=== PATIENT | female | born 1960 | race African-American/Black ===

== ENCOUNTER 2023-03-02 02:57 | Inpatient (IN) | payer MEDICARE, OTHER ==
[~2023-03-02] VITALS: Ht 167.6 cm; Wt 62.8 kg
[~2023-03-02 02:57] MED LIST: ASPI81TA39 PO; GABA-1181 PO; LAMO150T6 PO; NAPR500T6 PO; PRAV40TA3 PO
[2023-03-02 03:13] LABS: BASOPHILS % (AUTO) 1.1 % (0.0-2.0); EOSINOPHILS % (AUTO) 0.2 % (1.0-6.0); HEMOGLOBIN 14.3 g/dL (12.0-16.0); LYMPHOCYTES % (AUTO) 18.1 % (22.0-44.0); MEAN CORPUSCULAR HEMOGLOBIN 31.7 pg (26.0-34.0); MEAN CORPUSCULAR HGB CONC 33.3 G/dL (31.0-37.0); MEAN CORPUSCULAR VOLUME 95 fL (80-100); MONOCYTES # (AUTO) 0.2 K/uL (0.1-1.0); MONOCYTES % (AUTO) 2.1 % (2.0-9.0); NEUTROPHILS # (AUTO) 8.7 K/uL (1.8-7.7); NEUTROPHILS % (AUTO) 78.5 % (40.0-70.0); PLATELET COUNT (AUTO) 435 K/uL (150-450); RED BLOOD CELL COUNT(AUTO) 4.51 MIL/uL (4.00-5.20); RED CELL DISTRIBUTION WIDTH 13.4 % (11.5-14.5)
[2023-03-02] MEDS ORDERED: AZITHROMYCIN 500 MG/NS 250 ML IV ONE (03:15)
[2023-03-02] MEDS ORDERED: ALBUTEROL SULFATE 2.5 MG/0.5 ML NEB SOLUTION NEB ONE (03:15)
[2023-03-02] MEDS ORDERED: IPRATROPIUM BROMIDE 0.5 MG/2.5 ML NEB SOLUTION NEB ONE (03:15)
[2023-03-02] MEDS ORDERED: DEXAMETHASONE SOD PHOS 4 MG/ML 5 ML VIAL IVP ONE (03:15)
[2023-03-02] MEDS ORDERED: SODIUM CHLORIDE 0.9% 1,000 ML IV ONE (03:15)
[2023-03-02] MEDS ORDERED: BACL5TAB PO (03:26)
[2023-03-02] MEDS ORDERED: ESCI5SOL2 PO (03:26)
[2023-03-02] MEDS ORDERED: LAMO200T51 PO (03:26)
[2023-03-02] MEDS ORDERED: ALBU90AE IH (03:26)
[2023-03-02 03:30] LABS: ANION GAP 18 mmol/L (8-16); CALCIUM, TOTAL 9.3 mg/dL (8.8-10.5); CARBON DIOXIDE 18 mmol/L (22-29); CHLORIDE 96 mmol/L (98-107); CREATININE 0.85 mg/dL (0.60-1.30); GLOMERULAR FILTR. RATE CALC > 60 mL/min (>60); GLUCOSE,RANDOM 124 mg/dL (70-110); POTASSIUM 4.1 mmol/L (3.5-5.1); SODIUM SERUM 132 mmol/L (136-145)
[2023-03-02 03:34] LABS: ALANINE AMINOTRANSFERASE 9 U/L (12-78); ALBUMIN 3.1 g/dL (3.4-5.0); ALKALINE PHOSPHATASE 175 U/L (46-116); ASPARTATE AMINOTRANSFERASE 37 U/L (15-37); BILIRUBIN,TOTAL 0.7 mg/dL (0.1-1.0); LIPASE 29 U/L (73-393); TOTAL PROTEIN, SERUM 8.6 g/dL (6.4-8.2)
[2023-03-02 03:49] LABS: B-TYPE NATRIURETIC PEPTIDE 25 pg/mL (0-100)
[2023-03-02] MEDS ORDERED: SODIUM CHLORIDE 0.9% 1,600 ML IV ONE (04:00)
[2023-03-02 04:10] LABS: COVID AG,FIA SOURCE NASOPHARYNGEAL
[2023-03-02 04:14] LABS: INFLUENZA TYPE A NEGATIVE FOR TYPE A (NEGATIVE); INFLUENZA TYPE B NEGATIVE FOR TYPE B (NEGATIVE)
[2023-03-02 04:23] LABS: ABG BASE EXCESS -8.9 mmol/L (-2.0-3.0); ABG CARBOXYHEMOGLOBIN 1.8 % (0.0-1.5); ABG HCO3 18.4 mmol/L (22.0-26.0); ABG METHEMOGLOBIN 0.3 % (0.0-1.5); ABG OXYGEN CONTENT 17.2 mL/dL (15.0-23.0); ABG OXYGEN SATURATION 92.3 % (95.0-98.0); ABG OXYHEMOGLOBIN 90.4 % (94.0-100.0); ABG PCO2 28 mmHg (35-45); ABG PH 7.379 (7.35-7.450); ABG TOTAL HEMOGLOBIN 13.5 G/dL (12.0-18.0); PO2, ARTERIAL BG 70.4 mmHg (79.0-87.0); SOURCE, BLOOD GAS ARTERIAL; TEMPERATURE, FAHRENHEIT, BG 98.7 FAHREN (96.0-98.6)
[2023-03-02 04:24] LABS: ABG A-A DIFF O2 326.3 mmHg (10-20.0); SITE, BLOOD GAS LFT RADIAL
[2023-03-02 04:25] LABS: INSPIRATORY TIME, BG 0.9 SEC; O2 DEVICE,BLOOD GAS BIPAP (ROOM AIR)
[2023-03-02] MEDS ORDERED: ONDANSETRON HCL 4 MG/2 ML VIAL IVP PRN (04:30)
[2023-03-02] MEDS ORDERED: ACETAMINOPHEN 325 MG TABLET PO PRN (04:30)
[2023-03-02] MEDS ORDERED: REMDESIVIR 200 MG in SODIUM CHLORIDE 0.9% 250 ML IV ONE (05:00)
[2023-03-02] MEDS: PIPERACILLIN/TAZO 3.375 GM/D5W 50 ML IV SCH ×2 (05:30→11:43)
[2023-03-02] MEDS ORDERED: RINGERS SOLUTION,LACTATED 1,000 ML IV SCH (07:15)
[2023-03-02] MEDS: HEPARIN SODIUM,PORCINE 5,000 UNITS/ML VIAL SQ SCH ×2 (07:51→15:59)
[2023-03-02] MEDS: DOCUSATE SODIUM 100 MG CAPSULE PO SCH ×2 (08:07→21:00)
[2023-03-02] MEDS: FAMOTIDINE 20 MG/2 ML VIAL IVP SCH ×2 (09:27→22:42)
[2023-03-02 12:00] VITALS: BP 161/80
[2023-03-02] MEDS: SODIUM CHLORIDE 0.9% 1,000 ML IV SCH ×2 (13:02→22:17)
[2023-03-02 13:45] LABS: LACTIC ACID 2.9 mmol/L (0.4-2.0)
[2023-03-02 13:46] LABS: ANION GAP 10 mmol/L (8-16); CALCIUM, TOTAL 8.7 mg/dL (8.8-10.5); CARBON DIOXIDE 25 mmol/L (22-29); CHLORIDE 104 mmol/L (98-107); CREATININE 0.68 mg/dL (0.60-1.30); GLOMERULAR FILTR. RATE CALC > 60 mL/min (>60); GLUCOSE,RANDOM 131 mg/dL (70-110); POTASSIUM 3.4 mmol/L (3.5-5.1); SODIUM SERUM 139 mmol/L (136-145)
[2023-03-02] MEDS: HydrALAZINE HCL 20 MG/ML VIAL IVP PRN (15:59)
[2023-03-02 16:00] VITALS: BP 150/72
[2023-03-02] MEDS ORDERED: TOCILIZUMAB IV ONE (17:00)
[2023-03-02] MEDS: DEXMEDETOMIDINE HCL 400 MCG in SODIUM CHLORIDE 0.9% 96 ML IV PRN (17:00)
[2023-03-02] MEDS ORDERED: SODIUM CHLORIDE 0.9% IV ONE (17:00)
[2023-03-02 20:00] VITALS: BP 112/76
[2023-03-02] MEDS: METOPROLOL TARTRATE 25 MG TABLET PO SCH (22:15)
[2023-03-03] VITALS: BP 98/60
[2023-03-03] MEDS: HEPARIN SODIUM,PORCINE 5,000 UNITS/ML VIAL SQ SCH ×3 (00:46→15:18)
[2023-03-03] MEDS: DEXMEDETOMIDINE HCL 400 MCG in SODIUM CHLORIDE 0.9% 96 ML IV PRN ×2 (03:18→12:10)
[2023-03-03 04:00] VITALS: BP 119/79
[2023-03-03] MEDS: REMDESIVIR 100 MG in SODIUM CHLORIDE 0.9% 250 ML IV SCH (04:52)
[2023-03-03 07:42] LABS: BASOPHILS % (AUTO) 0.4 % (0.0-2.0); EOSINOPHILS % (AUTO) 0.1 % (1.0-6.0); HEMATOCRIT 37.3 % (36-46); HEMOGLOBIN 12.2 g/dL (12.0-16.0); LYMPHOCYTES # (AUTO) 0.9 K/uL (1.0-4.8); LYMPHOCYTES % (AUTO) 11.8 % (22.0-44.0); MEAN CORPUSCULAR HEMOGLOBIN 31.3 pg (26.0-34.0); MEAN CORPUSCULAR HGB CONC 32.7 G/dL (31.0-37.0); MEAN CORPUSCULAR VOLUME 96 fL (80-100); MONOCYTES # (AUTO) 0.4 K/uL (0.1-1.0); MONOCYTES % (AUTO) 4.9 % (2.0-9.0); NEUTROPHILS # (AUTO) 6.6 K/uL (1.8-7.7); NEUTROPHILS % (AUTO) 82.8 % (40.0-70.0); PLATELET COUNT (AUTO) 285 K/uL (150-450); RED CELL DISTRIBUTION WIDTH 13.5 % (11.5-14.5)
[2023-03-03 08:00] VITALS: BP 131/78
[2023-03-03 08:14] LABS: ALANINE AMINOTRANSFERASE 8 U/L (12-78); ALBUMIN 2.1 g/dL (3.4-5.0); ALKALINE PHOSPHATASE 95 U/L (46-116); ANION GAP 14 mmol/L (8-16); ASPARTATE AMINOTRANSFERASE 49 U/L (15-37); BILIRUBIN,TOTAL 0.4 mg/dL (0.1-1.0); CARBON DIOXIDE 18 mmol/L (22-29); CHLORIDE 106 mmol/L (98-107); GLOMERULAR FILTR. RATE CALC > 60 mL/min (>60); GLUCOSE,RANDOM 107 mg/dL (70-110); POTASSIUM 4.4 mmol/L (3.5-5.1); SODIUM SERUM 138 mmol/L (136-145); TOTAL PROTEIN, SERUM 6.8 g/dL (6.4-8.2)
[2023-03-03] MEDS: DEXAMETHASONE SOD PHOS 4 MG/ML VIAL IVP SCH (08:45)
[2023-03-03] MEDS: SODIUM CHLORIDE 0.9% 1,000 ML IV SCH ×2 (08:45→19:01)
[2023-03-03] MEDS: DOCUSATE SODIUM 100 MG CAPSULE PO SCH ×2 (08:46→21:00)
[2023-03-03] MEDS: METOPROLOL TARTRATE 25 MG TABLET PO SCH ×2 (08:46→21:29)
[2023-03-03] MEDS: FAMOTIDINE 20 MG/2 ML VIAL IVP SCH ×2 (08:46→21:29)
[2023-03-03] MEDS ORDERED: LEVE500T20 PO (11:27)
[2023-03-03] MEDS ORDERED: ATOR40TA71 PO (11:27)
[2023-03-03] MEDS ORDERED: FLUT16H NASAL (11:27)
[2023-03-03] MEDS ORDERED: ESCI10 PO (11:27)
[2023-03-03] MEDS ORDERED: LAMO200T10 PO (11:27)
[2023-03-03] MEDS ORDERED: BUDE10.22 IH (11:27)
[2023-03-03] MEDS ORDERED: ASPI-1444 PO (11:27)
[2023-03-03 12:00] VITALS: BP 150/92
[2023-03-03] MEDS ORDERED: LamoTRIgine 100 MG TABLET PO SCH (13:30)
[2023-03-03] MEDS: LevETIRAcetam 500 MG TABLET PO SCH ×2 (15:18→21:28)
[2023-03-03 16:00] VITALS: BP 170/134
[2023-03-03 16:21] LABS: ABG BASE EXCESS -8.2 mmol/L (-2.0-3.0); ABG CARBOXYHEMOGLOBIN 0.5 % (0.0-1.5); ABG METHEMOGLOBIN 0.3 % (0.0-1.5); ABG OXYGEN CONTENT 18.8 mL/dL (15.0-23.0); ABG OXYGEN SATURATION 94.3 % (95.0-98.0); ABG OXYHEMOGLOBIN 93.5 % (94.0-100.0); ABG PCO2 43 mmHg (35-45); ABG PH 7.259 (7.35-7.450); ABG TOTAL HEMOGLOBIN 14.3 G/dL (12.0-18.0); PO2, ARTERIAL BG 78.3 mmHg (79.0-87.0); SITE, BLOOD GAS LFT BRACHIAL; SOURCE, BLOOD GAS ARTERIAL
[2023-03-03 16:22] LABS: ABG A-A DIFF O2 447.5 mmHg (10-20.0); O2 DEVICE,BLOOD GAS BIPAP (ROOM AIR)
[2023-03-03] MEDS ORDERED: ETOMIDATE 2 MG/ML 10 ML VIAL ONE (16:28)
[2023-03-03] MEDS ORDERED: ROCURONIUM BROMIDE 10 MG/ML 5 ML VIAL IVP ONE (17:00)
[2023-03-03] MEDS ORDERED: ETOMIDATE 2 MG/ML 10 ML VIAL IVP ONE (17:00)
[2023-03-03] MEDS ORDERED: SODIUM CHLORIDE 0.9% 500 ML IV ONE (17:16)
[2023-03-03] MEDS: CISATRACURIUM BESYLATE 100 MG in DEXTROSE 5%-WATER 240 ML IV PRN (19:03)
[2023-03-03] MEDS ORDERED: NOREPINEPHRINE 8 MG/D5%-WATER 250 ML IV PRN (19:45)
[2023-03-03] MEDS ORDERED: NOREPINEPHRINE 8 MG/D5%-WATER 250 ML IV ONE (19:46)
[2023-03-03 19:59] LABS: ABG BASE EXCESS -11.6 mmol/L (-2.0-3.0); ABG CARBOXYHEMOGLOBIN 0.2 % (0.0-1.5); ABG METHEMOGLOBIN 0.3 % (0.0-1.5); ABG OXYGEN CONTENT 18.2 mL/dL (15.0-23.0); ABG OXYGEN SATURATION 97.6 % (95.0-98.0); ABG OXYHEMOGLOBIN 97.1 % (94.0-100.0); ABG PCO2 37 mmHg (35-45); ABG PH 7.245 (7.35-7.450); ABG TOTAL HEMOGLOBIN 13.2 G/dL (12.0-18.0); PO2, ARTERIAL BG 110.2 mmHg (79.0-87.0)
[2023-03-03 20:00] VITALS: BP 100/76
[2023-03-03 20:00] LABS: O2 DEVICE,BLOOD GAS VENTILATOR (ROOM AIR); SITE, BLOOD GAS RT RADIAL; SOURCE, BLOOD GAS ART LINE
[2023-03-03 20:01] LABS: PEEP,BG 8 cm H2O; SPONTANEOUS VT, BG 418 ml; VT, ABG 400 ml
[2023-03-03] MEDS ORDERED: VASOPRESSIN 40 UNITS in DEXTROSE 5%-WATER 98 ML IV PRN (20:30)
[2023-03-03] MEDS ORDERED: PHENYLEPHRINE 200 MG/D5%-WATER 250 ML IV PRN (20:30)
[2023-03-03] MEDS: LamoTRIgine 100 MG TABLET PO SCH (21:28)
[2023-03-03] MEDS: PROPOFOL 1000 MG/ISO-OSM 100 ML IV PRN (22:35)
[2023-03-04] VITALS: BP 115/78
[2023-03-04] MEDS: HEPARIN SODIUM,PORCINE 5,000 UNITS/ML VIAL SQ SCH ×4 (01:12→23:55)
[2023-03-04] MEDS: CISATRACURIUM BESYLATE 100 MG in DEXTROSE 5%-WATER 240 ML IV PRN ×2 (03:45→13:32)
[2023-03-04] MEDS: PROPOFOL 1000 MG/ISO-OSM 100 ML IV PRN ×4 (03:46→17:22)
[2023-03-04] MEDS: SODIUM CHLORIDE 0.9% 1,000 ML IV SCH ×3 (03:46→23:56)
[2023-03-04 04:00] VITALS: BP 125/79
[2023-03-04] MEDS: REMDESIVIR 100 MG in SODIUM CHLORIDE 0.9% 250 ML IV SCH (05:23)
[2023-03-04 07:38] LABS: BASOPHILS % (AUTO) 0.2 % (0.0-2.0); EOSINOPHILS % (AUTO) 0 % (1.0-6.0); HEMATOCRIT 38.4 % (36-46); HEMOGLOBIN 12.5 g/dL (12.0-16.0); LYMPHOCYTES # (AUTO) 1.2 K/uL (1.0-4.8); MEAN CORPUSCULAR HEMOGLOBIN 31.3 pg (26.0-34.0); MEAN CORPUSCULAR HGB CONC 32.6 G/dL (31.0-37.0); MEAN CORPUSCULAR VOLUME 96 fL (80-100); MONOCYTES # (AUTO) 0.3 K/uL (0.1-1.0); MONOCYTES % (AUTO) 2.5 % (2.0-9.0); NEUTROPHILS # (AUTO) 9.2 K/uL (1.8-7.7); PLATELET COUNT (AUTO) 378 K/uL (150-450); RED BLOOD CELL COUNT(AUTO) 3.99 MIL/uL (4.00-5.20); RED CELL DISTRIBUTION WIDTH 13.7 % (11.5-14.5)
[2023-03-04 07:41] LABS: NEUTROPHILS % (AUTO) 86.3 % (40.0-70.0)
[2023-03-04 07:57] LABS: ALANINE AMINOTRANSFERASE 8 U/L (12-78); ALBUMIN 1.8 g/dL (3.4-5.0); ALKALINE PHOSPHATASE 85 U/L (46-116); ANION GAP 10 mmol/L (8-16); ASPARTATE AMINOTRANSFERASE 49 U/L (15-37); BILIRUBIN,TOTAL 0.3 mg/dL (0.1-1.0); CALCIUM, TOTAL 8.5 mg/dL (8.8-10.5); CARBON DIOXIDE 20 mmol/L (22-29); CHLORIDE 107 mmol/L (98-107); CREATININE 0.61 mg/dL (0.60-1.30); GLOMERULAR FILTR. RATE CALC > 60 mL/min (>60); GLUCOSE,RANDOM 126 mg/dL (70-110); POTASSIUM 4.5 mmol/L (3.5-5.1); SODIUM SERUM 137 mmol/L (136-145); TOTAL PROTEIN, SERUM 5.9 g/dL (6.4-8.2)
[2023-03-04 08:00] VITALS: BP 101/72
[2023-03-04 09:07] LABS: APPEARANCE,URINE HAZY (CLEAR); BILIRUBIN,URINE NEGATIVE (NEGATIVE); GLUCOSE, URINE (UA) NEGATIVE (NEGATIVE); KETONES,URINE TRACE mg/dL (NEGATIVE); LEUKOCYTE ESTERASE ,URINE TRACE (NEGATIVE); NITRATE,URINE NEGATIVE (NEGATIVE); OCCULT BLOOD,URINE LARGE (NEGATIVE); PROTEIN,URINE 30-70 mg/dL (NEGATIVE); SPECIFIC GRAVITIY, URINE 1.024 (1.003-1.030); UROBILINOGEN,URINE <=1.0 mg/dL (<=1.0)
[2023-03-04] MEDS: LamoTRIgine 100 MG TABLET PO SCH ×2 (09:11→20:37)
[2023-03-04] MEDS: METOPROLOL TARTRATE 25 MG TABLET PO SCH ×2 (09:11→20:38)
[2023-03-04] MEDS: FAMOTIDINE 20 MG/2 ML VIAL IVP SCH ×2 (09:12→20:36)
[2023-03-04] MEDS: DEXAMETHASONE SOD PHOS 4 MG/ML VIAL IVP SCH (09:12)
[2023-03-04] MEDS: LevETIRAcetam 500 MG TABLET PO SCH ×2 (09:12→20:36)
[2023-03-04 09:29] LABS: AMPHET/METH SCREEN,URINE NEGATIVE (NEGATIVE); BARBITURATE SCREEN, URINE NEGATIVE (NEGATIVE); BENZODIAZEPINES SCREEN,URINE NEGATIVE (NEGATIVE); CANNABINOID SCREEN,URINE NEGATIVE (NEGATIVE); COCAINE SCREEN,URINE NEGATIVE (NEGATIVE); METHADONE SCREEN, URINE NEGATIVE (NEGATIVE); OPIATE SCREEN,URINE NEGATIVE (NEGATIVE); PHENCYCLIDINE SCREEN,URINE NEGATIVE (NEGATIVE)
[2023-03-04 09:43] LABS: RBC,URINE 26-50 /HPF (0-2)
[2023-03-04 09:44] LABS: BACTERIA,URINE Moderate /HPF (None Seen); FINE GRANULAR CASTS,URINE 0-2 /LPF (None Seen); HYALINE CASTS, URINE 0-2 /LPF (None Seen); SQUAMOUS EPITHELIAL CELL,UR Moderate /LPF (None Seen)
[2023-03-04] MEDS: DOCUSATE SODIUM 100 MG CAPSULE PO SCH ×2 (09:54→20:38)
[2023-03-04 12:00] VITALS: BP 123/85
[2023-03-04 15:45] LABS: ABG BASE EXCESS -10.6 mmol/L (-2.0-3.0); ABG HCO3 16.5 mmol/L (22.0-26.0); ABG METHEMOGLOBIN 0.3 % (0.0-1.5); ABG OXYGEN CONTENT 18.5 mL/dL (15.0-23.0); ABG OXYGEN SATURATION 95.4 % (95.0-98.0); ABG OXYHEMOGLOBIN 95.1 % (94.0-100.0); ABG PCO2 40 mmHg (35-45); ABG PH 7.242 (7.35-7.450); ABG TOTAL HEMOGLOBIN 13.8 G/dL (12.0-18.0); PO2, ARTERIAL BG 85.9 mmHg (79.0-87.0); SOURCE, BLOOD GAS ARTERIAL; TEMPERATURE, FAHRENHEIT, BG 98.2 FAHREN (96.0-98.6)
[2023-03-04 15:48] LABS: ABG A-A DIFF O2 153.7 mmHg (10-20.0); O2 DEVICE,BLOOD GAS VENTILATOR (ROOM AIR); PEEP,BG 8 cm H2O; SITE, BLOOD GAS ARTERIAL LINE; VT, ABG 400 ml
[2023-03-04 16:00] VITALS: BP 100/72
[2023-03-04] MEDS ORDERED: SODIUM BICARBONATE [ADULT] 8.4% 50 MEQ/50 ML SYRINGE IVP ONE (16:00)
[2023-03-04] MEDS: FentaNYL CIT 1000MCG/0.9% NACL 100 ML IV PRN (17:21)
[2023-03-04 17:26] LABS: ABG BASE EXCESS -4.3 mmol/L (-2.0-3.0); ABG CARBOXYHEMOGLOBIN 0.2 % (0.0-1.5); ABG HCO3 21.5 mmol/L (22.0-26.0); ABG METHEMOGLOBIN 0.3 % (0.0-1.5); ABG OXYGEN SATURATION 97.3 % (95.0-98.0); ABG OXYHEMOGLOBIN 96.8 % (94.0-100.0); ABG PCO2 34 mmHg (35-45); ABG PH 7.399 (7.35-7.450); ABG TOTAL HEMOGLOBIN 13.2 G/dL (12.0-18.0); PO2, ARTERIAL BG 90.7 mmHg (79.0-87.0); SITE, BLOOD GAS ARTERIAL LINE; SOURCE, BLOOD GAS ARTERIAL; TEMPERATURE, FAHRENHEIT, BG 98.6 FAHREN (96.0-98.6)
[2023-03-04 17:27] LABS: ABG A-A DIFF O2 155.5 mmHg (10-20.0); O2 DEVICE,BLOOD GAS VENTILATOR (ROOM AIR); PEEP,BG 8 cm H2O; VT, ABG 400 ml
[2023-03-04 20:00] VITALS: BP 103/67
[2023-03-05] VITALS: BP 99/62
[2023-03-05] MEDS: PROPOFOL 1000 MG/ISO-OSM 100 ML IV PRN ×2 (02:41→15:19)
[2023-03-05 04:00] VITALS: BP 113/65
[2023-03-05] MEDS: REMDESIVIR 100 MG in SODIUM CHLORIDE 0.9% 250 ML IV SCH (05:09)
[2023-03-05 05:31] LABS: BASOPHILS % (AUTO) 0.4 % (0.0-2.0); EOSINOPHILS % (AUTO) 0 % (1.0-6.0); HEMATOCRIT 36.9 % (36-46); LYMPHOCYTES # (AUTO) 1.4 K/uL (1.0-4.8); LYMPHOCYTES % (AUTO) 12.3 % (22.0-44.0); MEAN CORPUSCULAR HEMOGLOBIN 30.9 pg (26.0-34.0); MEAN CORPUSCULAR HGB CONC 32.5 G/dL (31.0-37.0); MEAN CORPUSCULAR VOLUME 95 fL (80-100); MONOCYTES # (AUTO) 0.4 K/uL (0.1-1.0); MONOCYTES % (AUTO) 3.8 % (2.0-9.0); NEUTROPHILS # (AUTO) 9.2 K/uL (1.8-7.7); NEUTROPHILS % (AUTO) 83.5 % (40.0-70.0); PLATELET COUNT (AUTO) 372 K/uL (150-450); RED BLOOD CELL COUNT(AUTO) 3.88 MIL/uL (4.00-5.20); RED CELL DISTRIBUTION WIDTH 13.8 % (11.5-14.5)
[2023-03-05 05:49] LABS: ALANINE AMINOTRANSFERASE 12 U/L (12-78); ALBUMIN 1.8 g/dL (3.4-5.0); ALKALINE PHOSPHATASE 72 U/L (46-116); ANION GAP 11 mmol/L (8-16); ASPARTATE AMINOTRANSFERASE 43 U/L (15-37); BILIRUBIN,TOTAL 0.3 mg/dL (0.1-1.0); CALCIUM, TOTAL 8.2 mg/dL (8.8-10.5); CARBON DIOXIDE 21 mmol/L (22-29); CHLORIDE 108 mmol/L (98-107); CREATININE 0.52 mg/dL (0.60-1.30); GLOMERULAR FILTR. RATE CALC > 60 mL/min (>60); GLUCOSE,RANDOM 124 mg/dL (70-110); POTASSIUM 3.6 mmol/L (3.5-5.1); SODIUM SERUM 140 mmol/L (136-145); TOTAL PROTEIN, SERUM 5.5 g/dL (6.4-8.2)
[2023-03-05] MEDS: FentaNYL CIT 1000MCG/0.9% NACL 100 ML IV PRN ×2 (06:42→22:42)
[2023-03-05 08:00] VITALS: BP 103/57
[2023-03-05] MEDS: DEXAMETHASONE SOD PHOS 4 MG/ML VIAL IVP SCH (08:46)
[2023-03-05] MEDS: FAMOTIDINE 20 MG/2 ML VIAL IVP SCH ×2 (08:46→20:30)
[2023-03-05] MEDS: HEPARIN SODIUM,PORCINE 5,000 UNITS/ML VIAL SQ SCH ×3 (08:47→23:20)
[2023-03-05] MEDS: DOCUSATE SODIUM 100 MG CAPSULE PO SCH ×2 (08:47→20:30)
[2023-03-05] MEDS: METOPROLOL TARTRATE 25 MG TABLET PO SCH ×2 (08:47→20:32)
[2023-03-05] MEDS: LevETIRAcetam 500 MG TABLET PO SCH ×2 (08:47→20:30)
[2023-03-05] MEDS: LamoTRIgine 100 MG TABLET PO SCH ×2 (08:48→20:31)
[2023-03-05] MEDS: SODIUM CHLORIDE 0.9% 1,000 ML IV SCH ×2 (08:48→20:30)
[2023-03-05 12:00] VITALS: BP 122/59
[2023-03-05 16:00] VITALS: BP 111/66
[2023-03-05 20:00] VITALS: BP 117/70
[2023-03-06] VITALS: BP 110/73
[2023-03-06] MEDS: PROPOFOL 1000 MG/ISO-OSM 100 ML IV PRN ×3 (00:09→20:22)
[2023-03-06 04:00] VITALS: BP 106/74
[2023-03-06] MEDS: REMDESIVIR 100 MG in SODIUM CHLORIDE 0.9% 250 ML IV SCH (05:41)
[2023-03-06] MEDS: SODIUM CHLORIDE 0.9% 1,000 ML IV SCH ×2 (05:42→16:20)
[2023-03-06 05:52] LABS: BASOPHILS % (AUTO) 0.3 % (0.0-2.0); EOSINOPHILS % (AUTO) 0.1 % (1.0-6.0); HEMATOCRIT 35.2 % (36-46); HEMOGLOBIN 11.6 g/dL (12.0-16.0); LYMPHOCYTES % (AUTO) 12.9 % (22.0-44.0); MEAN CORPUSCULAR HEMOGLOBIN 31.3 pg (26.0-34.0); MEAN CORPUSCULAR VOLUME 95 fL (80-100); MONOCYTES # (AUTO) 0.3 K/uL (0.1-1.0); MONOCYTES % (AUTO) 4.1 % (2.0-9.0); NEUTROPHILS # (AUTO) 6.1 K/uL (1.8-7.7); NEUTROPHILS % (AUTO) 82.6 % (40.0-70.0); PLATELET COUNT (AUTO) 277 K/uL (150-450); RED BLOOD CELL COUNT(AUTO) 3.72 MIL/uL (4.00-5.20); RED CELL DISTRIBUTION WIDTH 13.6 % (11.5-14.5)
[2023-03-06 06:06] LABS: ALANINE AMINOTRANSFERASE 8 U/L (12-78); ALBUMIN 1.8 g/dL (3.4-5.0); ALKALINE PHOSPHATASE 64 U/L (46-116); ANION GAP 8 mmol/L (8-16); ASPARTATE AMINOTRANSFERASE 29 U/L (15-37); BILIRUBIN,TOTAL 0.2 mg/dL (0.1-1.0); CARBON DIOXIDE 23 mmol/L (22-29); CHLORIDE 109 mmol/L (98-107); CREATININE 0.42 mg/dL (0.60-1.30); GLOMERULAR FILTR. RATE CALC > 60 mL/min (>60); GLUCOSE,RANDOM 121 mg/dL (70-110); POTASSIUM 3.3 mmol/L (3.5-5.1); SODIUM SERUM 140 mmol/L (136-145)
[2023-03-06 08:00] VITALS: BP 111/65
[2023-03-06] MEDS ORDERED: 0.9% SODIUM CHLORIDE 5 ML NEB SOLUTION NEB ONE (08:31)
[2023-03-06] MEDS: ALBUTEROL SULFATE 2.5 MG/0.5 ML NEB SOLUTION NEB PRN ×2 (08:33→16:08)
[2023-03-06] MEDS: METOPROLOL TARTRATE 25 MG TABLET PO SCH ×2 (09:00→21:00)
[2023-03-06] MEDS: HEPARIN SODIUM,PORCINE 5,000 UNITS/ML VIAL SQ SCH ×2 (09:12→16:19)
[2023-03-06] MEDS: DOCUSATE SODIUM 100 MG CAPSULE PO SCH ×2 (09:13→20:21)
[2023-03-06] MEDS: LamoTRIgine 100 MG TABLET PO SCH ×2 (09:13→20:20)
[2023-03-06] MEDS: LevETIRAcetam 500 MG TABLET PO SCH ×2 (09:13→20:20)
[2023-03-06] MEDS: FAMOTIDINE 20 MG/2 ML VIAL IVP SCH ×2 (09:13→20:20)
[2023-03-06] MEDS: DEXAMETHASONE SOD PHOS 4 MG/ML VIAL IVP SCH (09:14)
[2023-03-06] MEDS: FentaNYL CIT 1000MCG/0.9% NACL 100 ML IV PRN ×2 (09:15→20:15)
[2023-03-06 12:00] VITALS: BP 109/63
[2023-03-06 16:00] VITALS: BP 135/81
[2023-03-06] MEDS: IPRATROPIUM BROMIDE 0.5 MG/2.5 ML NEB SOLUTION NEB PRN (16:08)
[2023-03-06 20:00] VITALS: BP 91/45
[2023-03-06] MEDS ORDERED: MIDAZOLAM HCL 5 MG/ML VIAL IVP PRN (22:30)
[2023-03-07] VITALS: BP 91/45
[2023-03-07] MEDS: HEPARIN SODIUM,PORCINE 5,000 UNITS/ML VIAL SQ SCH ×4 (00:09→23:19)
[2023-03-07] MEDS: PROPOFOL 1000 MG/ISO-OSM 100 ML IV PRN ×4 (02:27→18:31)
[2023-03-07] MEDS: SODIUM CHLORIDE 0.9% 1,000 ML IV SCH ×3 (02:28→21:34)
[2023-03-07] MEDS ORDERED: SODIUM CHLORIDE 0.9% 500 ML IV ONE (03:36)
[2023-03-07 04:00] VITALS: BP 111/72
[2023-03-07] MEDS: FentaNYL CIT 1000MCG/0.9% NACL 100 ML IV PRN ×2 (05:33→12:33)
[2023-03-07 05:44] LABS: BASOPHILS % (AUTO) 0.2 % (0.0-2.0); EOSINOPHILS % (AUTO) 0.2 % (1.0-6.0); HEMATOCRIT 34.2 % (36-46); HEMOGLOBIN 11.2 g/dL (12.0-16.0); LYMPHOCYTES # (AUTO) 1.6 K/uL (1.0-4.8); LYMPHOCYTES % (AUTO) 18.9 % (22.0-44.0); MEAN CORPUSCULAR HEMOGLOBIN 31.2 pg (26.0-34.0); MEAN CORPUSCULAR HGB CONC 32.7 G/dL (31.0-37.0); MEAN CORPUSCULAR VOLUME 95 fL (80-100); MONOCYTES # (AUTO) 0.5 K/uL (0.1-1.0); MONOCYTES % (AUTO) 6.1 % (2.0-9.0); NEUTROPHILS # (AUTO) 6.2 K/uL (1.8-7.7); NEUTROPHILS % (AUTO) 74.6 % (40.0-70.0); PLATELET COUNT (AUTO) 230 K/uL (150-450); RED BLOOD CELL COUNT(AUTO) 3.58 MIL/uL (4.00-5.20); RED CELL DISTRIBUTION WIDTH 13.7 % (11.5-14.5)
[2023-03-07 05:55] LABS: ANION GAP 9 mmol/L (8-16); CALCIUM, TOTAL 8.1 mg/dL (8.8-10.5); CARBON DIOXIDE 23 mmol/L (22-29); CHLORIDE 109 mmol/L (98-107); CREATININE 0.43 mg/dL (0.60-1.30); GLOMERULAR FILTR. RATE CALC > 60 mL/min (>60); GLUCOSE,RANDOM 108 mg/dL (70-110); PHOSPHORUS 2.7 mg/dL (2.5-4.9); POTASSIUM 3.2 mmol/L (3.5-5.1); SODIUM SERUM 141 mmol/L (136-145)
[2023-03-07 08:00] VITALS: BP 110/64
[2023-03-07] MEDS: LamoTRIgine 100 MG TABLET PO SCH ×2 (08:56→21:06)
[2023-03-07] MEDS: FAMOTIDINE 20 MG/2 ML VIAL IVP SCH ×2 (08:56→21:06)
[2023-03-07] MEDS: DEXAMETHASONE SOD PHOS 4 MG/ML VIAL IVP SCH (08:56)
[2023-03-07] MEDS: METOPROLOL TARTRATE 25 MG TABLET PO SCH ×2 (08:57→21:00)
[2023-03-07] MEDS: DOCUSATE SODIUM 100 MG CAPSULE PO SCH ×2 (08:58→21:05)
[2023-03-07] MEDS: LevETIRAcetam 100 MG/ML 5 ML SOLUTION UDCUP PO SCH ×2 (09:41→21:05)
[2023-03-07 12:00] VITALS: BP 101/61
[2023-03-07] MEDS ORDERED: POTASSIUM CHLORIDE 20 MEQ ER TABLET PO PRN (14:30)
[2023-03-07] MEDS: POTASSIUM CHL 10 MEQ/WATER 50 ML IV PRN ×4 (14:42→17:15)
[2023-03-07 16:00] VITALS: BP 95/63
[2023-03-07 20:00] VITALS: BP 102/68
[2023-03-08] VITALS: BP 104/69
[2023-03-08] MEDS: PROPOFOL 1000 MG/ISO-OSM 100 ML IV PRN ×3 (01:10→17:14)
[2023-03-08] MEDS: FentaNYL CIT 1000MCG/0.9% NACL 100 ML IV PRN ×3 (01:11→17:16)
[2023-03-08 04:00] VITALS: BP 110/56
[2023-03-08 05:30] LABS: BASOPHILS % (AUTO) 0.3 % (0.0-2.0); EOSINOPHILS % (AUTO) 0.3 % (1.0-6.0); HEMOGLOBIN 11.6 g/dL (12.0-16.0); LYMPHOCYTES % (AUTO) 16.2 % (22.0-44.0); MEAN CORPUSCULAR HEMOGLOBIN 31.3 pg (26.0-34.0); MEAN CORPUSCULAR HGB CONC 33.1 G/dL (31.0-37.0); MEAN CORPUSCULAR VOLUME 95 fL (80-100); MONOCYTES # (AUTO) 0.3 K/uL (0.1-1.0); MONOCYTES % (AUTO) 5.4 % (2.0-9.0); NEUTROPHILS # (AUTO) 4.8 K/uL (1.8-7.7); NEUTROPHILS % (AUTO) 77.8 % (40.0-70.0); PLATELET COUNT (AUTO) 213 K/uL (150-450); RED CELL DISTRIBUTION WIDTH 13.3 % (11.5-14.5)
[2023-03-08 05:39] LABS: ANION GAP 8 mmol/L (8-16); CALCIUM, TOTAL 7.9 mg/dL (8.8-10.5); CARBON DIOXIDE 22 mmol/L (22-29); CHLORIDE 113 mmol/L (98-107); CREATININE 0.28 mg/dL (0.60-1.30); GLOMERULAR FILTR. RATE CALC > 60 mL/min (>60); GLUCOSE,RANDOM 110 mg/dL (70-110); POTASSIUM 3.6 mmol/L (3.5-5.1); SODIUM SERUM 143 mmol/L (136-145)
[2023-03-08 08:00] VITALS: BP 97/61
[2023-03-08] MEDS: LamoTRIgine 100 MG TABLET PO SCH ×2 (08:15→22:03)
[2023-03-08] MEDS: HEPARIN SODIUM,PORCINE 5,000 UNITS/ML VIAL SQ SCH ×2 (08:16→15:12)
[2023-03-08] MEDS: LevETIRAcetam 100 MG/ML 5 ML SOLUTION UDCUP PO SCH ×2 (08:16→22:03)
[2023-03-08] MEDS: FAMOTIDINE 20 MG/2 ML VIAL IVP SCH ×2 (08:16→22:05)
[2023-03-08] MEDS: DEXAMETHASONE SOD PHOS 4 MG/ML VIAL IVP SCH (08:16)
[2023-03-08] MEDS: METOPROLOL TARTRATE 25 MG TABLET PO SCH ×2 (08:17→21:00)
[2023-03-08] MEDS: DOCUSATE SODIUM 100 MG CAPSULE PO SCH ×2 (08:17→22:03)
[2023-03-08 12:00] VITALS: BP 102/66
[2023-03-08] MEDS: SODIUM CHLORIDE 0.9% 1,000 ML IV SCH (15:10)
[2023-03-08 16:00] VITALS: BP 92/57
[2023-03-08 20:00] VITALS: BP 94/55
[2023-03-09] VITALS: BP 83/51
[2023-03-09] MEDS: FentaNYL CIT 1000MCG/0.9% NACL 100 ML IV PRN ×4 (00:22→23:56)
[2023-03-09] MEDS: PROPOFOL 1000 MG/ISO-OSM 100 ML IV PRN ×5 (00:23→23:57)
[2023-03-09] MEDS: SODIUM CHLORIDE 0.9% 1,000 ML IV SCH ×3 (00:24→14:40)
[2023-03-09] MEDS: HEPARIN SODIUM,PORCINE 5,000 UNITS/ML VIAL SQ SCH ×3 (00:24→16:09)
[2023-03-09 04:00] VITALS: BP 111/66
[2023-03-09 05:33] LABS: BASOPHILS % (AUTO) 0.7 % (0.0-2.0); EOSINOPHILS % (AUTO) 0.6 % (1.0-6.0); HEMATOCRIT 29.3 % (36-46); HEMOGLOBIN 9.7 g/dL (12.0-16.0); LYMPHOCYTES # (AUTO) 1.5 K/uL (1.0-4.8); LYMPHOCYTES % (AUTO) 12.4 % (22.0-44.0); MEAN CORPUSCULAR HEMOGLOBIN 31.6 pg (26.0-34.0); MEAN CORPUSCULAR HGB CONC 33.1 G/dL (31.0-37.0); MEAN CORPUSCULAR VOLUME 95 fL (80-100); MONOCYTES # (AUTO) 0.8 K/uL (0.1-1.0); MONOCYTES % (AUTO) 6.6 % (2.0-9.0); NEUTROPHILS # (AUTO) 9.4 K/uL (1.8-7.7); NEUTROPHILS % (AUTO) 79.7 % (40.0-70.0); PLATELET COUNT (AUTO) 217 K/uL (150-450); RED BLOOD CELL COUNT(AUTO) 3.07 MIL/uL (4.00-5.20); RED CELL DISTRIBUTION WIDTH 13.7 % (11.5-14.5)
[2023-03-09 08:00] VITALS: BP 110/65
[2023-03-09 08:04] LABS: ANION GAP 9 mmol/L (8-16); CALCIUM, TOTAL 7.8 mg/dL (8.8-10.5); CARBON DIOXIDE 23 mmol/L (22-29); CHLORIDE 112 mmol/L (98-107); GLOMERULAR FILTR. RATE CALC > 60 mL/min (>60); GLUCOSE,RANDOM 93 mg/dL (70-110); SODIUM SERUM 144 mmol/L (136-145)
[2023-03-09] MEDS: DEXAMETHASONE SOD PHOS 4 MG/ML VIAL IVP SCH (08:21)
[2023-03-09] MEDS: FAMOTIDINE 20 MG/2 ML VIAL IVP SCH ×2 (08:21→22:03)
[2023-03-09] MEDS: LevETIRAcetam 100 MG/ML 5 ML SOLUTION UDCUP PO SCH ×2 (08:21→22:02)
[2023-03-09] MEDS: LamoTRIgine 100 MG TABLET PO SCH ×2 (08:22→22:03)
[2023-03-09] MEDS: METOPROLOL TARTRATE 25 MG TABLET PO SCH ×2 (08:22→21:00)
[2023-03-09] MEDS: DOCUSATE SODIUM 100 MG CAPSULE PO SCH ×2 (08:23→22:03)
[2023-03-09 12:00] VITALS: BP 140/77
[2023-03-09 16:00] VITALS: BP 94/59
[2023-03-09] MEDS: FUROSEMIDE 40 MG/4 ML VIAL IVP SCH (18:06)
[2023-03-09 20:00] VITALS: BP 92/57
[2023-03-10] VITALS: BP 112/64
[2023-03-10] MEDS: HEPARIN SODIUM,PORCINE 5,000 UNITS/ML VIAL SQ SCH ×3 (00:34→16:09)
[2023-03-10] MEDS: SODIUM CHLORIDE 0.9% 1,000 ML IV SCH ×3 (00:34→21:52)
[2023-03-10 04:00] VITALS: BP 120/66
[2023-03-10] MEDS: PROPOFOL 1000 MG/ISO-OSM 100 ML IV PRN ×4 (05:33→22:41)
[2023-03-10] MEDS: FentaNYL CIT 1000MCG/0.9% NACL 100 ML IV PRN ×3 (05:34→21:54)
[2023-03-10 06:05] LABS: BASOPHILS % (AUTO) 1.2 % (0.0-2.0); EOSINOPHILS % (AUTO) 1.1 % (1.0-6.0); HEMATOCRIT 28.9 % (36-46); HEMOGLOBIN 9.7 g/dL (12.0-16.0); LYMPHOCYTES # (AUTO) 1.3 K/uL (1.0-4.8); LYMPHOCYTES % (AUTO) 15.6 % (22.0-44.0); MEAN CORPUSCULAR HEMOGLOBIN 31.9 pg (26.0-34.0); MEAN CORPUSCULAR HGB CONC 33.5 G/dL (31.0-37.0); MEAN CORPUSCULAR VOLUME 95 fL (80-100); MONOCYTES # (AUTO) 0.3 K/uL (0.1-1.0); MONOCYTES % (AUTO) 3.9 % (2.0-9.0); NEUTROPHILS # (AUTO) 6.3 K/uL (1.8-7.7); NEUTROPHILS % (AUTO) 78.2 % (40.0-70.0); PLATELET COUNT (AUTO) 183 K/uL (150-450); RED BLOOD CELL COUNT(AUTO) 3.04 MIL/uL (4.00-5.20); RED CELL DISTRIBUTION WIDTH 13.8 % (11.5-14.5)
[2023-03-10 08:00] VITALS: BP 91/53
[2023-03-10 08:18] LABS: ANION GAP 11 mmol/L (8-16); CALCIUM, TOTAL 7.6 mg/dL (8.8-10.5); CARBON DIOXIDE 23 mmol/L (22-29); CHLORIDE 111 mmol/L (98-107); CREATININE 0.32 mg/dL (0.60-1.30); GLOMERULAR FILTR. RATE CALC > 60 mL/min (>60); GLUCOSE,RANDOM 106 mg/dL (70-110); SODIUM SERUM 145 mmol/L (136-145)
[2023-03-10] MEDS: LevETIRAcetam 100 MG/ML 5 ML SOLUTION UDCUP PO SCH ×2 (08:19→21:52)
[2023-03-10 08:20] LABS: POTASSIUM 2.9 mmol/L (3.5-5.1)
[2023-03-10] MEDS: LamoTRIgine 100 MG TABLET PO SCH ×2 (08:20→21:53)
[2023-03-10] MEDS: FAMOTIDINE 20 MG/2 ML VIAL IVP SCH ×2 (08:20→21:53)
[2023-03-10] MEDS: DEXAMETHASONE SOD PHOS 4 MG/ML VIAL IVP SCH (08:21)
[2023-03-10] MEDS: DOCUSATE SODIUM 100 MG CAPSULE PO SCH ×2 (08:21→21:53)
[2023-03-10] MEDS: FUROSEMIDE 40 MG/4 ML VIAL IVP SCH (08:21)
[2023-03-10] MEDS: METOPROLOL TARTRATE 25 MG TABLET PO SCH ×2 (08:22→21:00)
[2023-03-10] MEDS: POTASSIUM CHL 10 MEQ/WATER 50 ML IV PRN ×4 (08:48→10:53)
[2023-03-10 12:00] VITALS: BP 107/64
[2023-03-10 16:00] VITALS: BP 92/55
[2023-03-10] MEDS: DEXMEDETOMIDINE HCL 400 MCG in SODIUM CHLORIDE 0.9% 96 ML IV PRN (17:18)
[2023-03-10 20:00] VITALS: BP 132/75
[2023-03-11] VITALS: BP 112/62
[2023-03-11] MEDS: HEPARIN SODIUM,PORCINE 5,000 UNITS/ML VIAL SQ SCH ×3 (01:32→15:41)
[2023-03-11 04:00] VITALS: BP 156/92
[2023-03-11] MEDS: PROPOFOL 1000 MG/ISO-OSM 100 ML IV PRN ×2 (04:39→14:34)
[2023-03-11] MEDS: FentaNYL CIT 1000MCG/0.9% NACL 100 ML IV PRN (04:40)
[2023-03-11] MEDS: DEXMEDETOMIDINE HCL 400 MCG in SODIUM CHLORIDE 0.9% 96 ML IV PRN ×3 (04:41→16:24)
[2023-03-11 05:51] LABS: BASOPHILS % (AUTO) 0.2 % (0.0-2.0); EOSINOPHILS % (AUTO) 0.5 % (1.0-6.0); HEMATOCRIT 36.2 % (36-46); HEMOGLOBIN 11.6 g/dL (12.0-16.0); LYMPHOCYTES % (AUTO) 11.7 % (22.0-44.0); MEAN CORPUSCULAR HEMOGLOBIN 30.9 pg (26.0-34.0); MEAN CORPUSCULAR HGB CONC 32.2 G/dL (31.0-37.0); MEAN CORPUSCULAR VOLUME 96 fL (80-100); MONOCYTES # (AUTO) 0.3 K/uL (0.1-1.0); MONOCYTES % (AUTO) 2.9 % (2.0-9.0); NEUTROPHILS # (AUTO) 7.6 K/uL (1.8-7.7); NEUTROPHILS % (AUTO) 84.7 % (40.0-70.0); PLATELET COUNT (AUTO) 185 K/uL (150-450); RED BLOOD CELL COUNT(AUTO) 3.76 MIL/uL (4.00-5.20); RED CELL DISTRIBUTION WIDTH 13.7 % (11.5-14.5)
[2023-03-11 06:02] LABS: ANION GAP 9 mmol/L (8-16); CALCIUM, TOTAL 7.7 mg/dL (8.8-10.5); CARBON DIOXIDE 24 mmol/L (22-29); CHLORIDE 112 mmol/L (98-107); CREATININE 0.38 mg/dL (0.60-1.30); GLOMERULAR FILTR. RATE CALC > 60 mL/min (>60); GLUCOSE,RANDOM 99 mg/dL (70-110); POTASSIUM 3.4 mmol/L (3.5-5.1); SODIUM SERUM 145 mmol/L (136-145)
[2023-03-11] MEDS: SODIUM CHLORIDE 0.9% 1,000 ML IV SCH ×2 (06:34→20:32)
[2023-03-11] MEDS: POTASSIUM CHL 10 MEQ/WATER 50 ML IV PRN ×2 (06:34→09:11)
[2023-03-11 08:00] VITALS: BP 112/69
[2023-03-11] MEDS: LevETIRAcetam 100 MG/ML 5 ML SOLUTION UDCUP PO SCH ×2 (08:55→20:32)
[2023-03-11] MEDS: LamoTRIgine 100 MG TABLET PO SCH ×2 (08:55→20:33)
[2023-03-11] MEDS: FUROSEMIDE 40 MG/4 ML VIAL IVP SCH (08:55)
[2023-03-11] MEDS: DOCUSATE SODIUM 100 MG CAPSULE PO SCH ×2 (08:56→20:32)
[2023-03-11] MEDS: FAMOTIDINE 20 MG/2 ML VIAL IVP SCH ×2 (08:56→20:32)
[2023-03-11] MEDS: METOPROLOL TARTRATE 25 MG TABLET PO SCH ×2 (08:56→20:34)
[2023-03-11] MEDS: DEXAMETHASONE SOD PHOS 4 MG/ML VIAL IVP SCH (09:07)
[2023-03-11 12:00] VITALS: BP 86/49
[2023-03-11 16:00] VITALS: BP 124/74
[2023-03-11 19:43] LABS: ABG BASE EXCESS -0.8 mmol/L (-2.0-3.0); ABG CARBOXYHEMOGLOBIN 0.2 % (0.0-1.5); ABG HCO3 24.6 mmol/L (22.0-26.0); ABG METHEMOGLOBIN 0.2 % (0.0-1.5); ABG OXYGEN CONTENT 19.8 mL/dL (15.0-23.0); ABG OXYGEN SATURATION 97.1 % (95.0-98.0); ABG OXYHEMOGLOBIN 96.7 % (94.0-100.0); ABG PCO2 32 mmHg (35-45); ABG PH 7.472 (7.35-7.450); ABG TOTAL HEMOGLOBIN 14.5 G/dL (12.0-18.0); PO2, ARTERIAL BG 93.2 mmHg (79.0-87.0); SOURCE, BLOOD GAS ARTERIAL; TEMPERATURE, FAHRENHEIT, BG 98.6 FAHREN (96.0-98.6)
[2023-03-11 19:46] LABS: O2 DEVICE,BLOOD GAS VENTILATOR (ROOM AIR); PEEP,BG 5 cm H2O; SITE, BLOOD GAS ARTERIAL LINE; VT, ABG 400 ml
[2023-03-11 20:00] VITALS: BP 140/84
[2023-03-12] VITALS: BP 137/91
[2023-03-12] MEDS: DEXMEDETOMIDINE HCL 400 MCG in SODIUM CHLORIDE 0.9% 96 ML IV PRN ×3 (00:05→18:24)
[2023-03-12] MEDS: HEPARIN SODIUM,PORCINE 5,000 UNITS/ML VIAL SQ SCH ×3 (00:06→16:17)
[2023-03-12] MEDS: PROPOFOL 1000 MG/ISO-OSM 100 ML IV PRN ×3 (01:36→21:24)
[2023-03-12 04:00] VITALS: BP 149/76
[2023-03-12] MEDS ORDERED: SODIUM CHLORIDE 0.9% 500 ML IV ONE (04:43)
[2023-03-12] MEDS ORDERED: SODIUM CHLORIDE 0.9% 250 ML IV ONE (04:43)
[2023-03-12 05:52] LABS: BASOPHILS % (AUTO) 0.4 % (0.0-2.0); EOSINOPHILS % (AUTO) 0.7 % (1.0-6.0); HEMATOCRIT 37.3 % (36-46); HEMOGLOBIN 12.2 g/dL (12.0-16.0); LYMPHOCYTES # (AUTO) 1.3 K/uL (1.0-4.8); LYMPHOCYTES % (AUTO) 16.1 % (22.0-44.0); MEAN CORPUSCULAR HGB CONC 32.7 G/dL (31.0-37.0); MEAN CORPUSCULAR VOLUME 95 fL (80-100); MONOCYTES # (AUTO) 0.3 K/uL (0.1-1.0); MONOCYTES % (AUTO) 3.7 % (2.0-9.0); NEUTROPHILS # (AUTO) 6.4 K/uL (1.8-7.7); NEUTROPHILS % (AUTO) 79.1 % (40.0-70.0); PLATELET COUNT (AUTO) 153 K/uL (150-450); RED BLOOD CELL COUNT(AUTO) 3.94 MIL/uL (4.00-5.20); RED CELL DISTRIBUTION WIDTH 14.1 % (11.5-14.5)
[2023-03-12 06:03] LABS: ANION GAP 11 mmol/L (8-16); CALCIUM, TOTAL 8.1 mg/dL (8.8-10.5); CARBON DIOXIDE 22 mmol/L (22-29); CHLORIDE 109 mmol/L (98-107); CREATININE 0.39 mg/dL (0.60-1.30); GLOMERULAR FILTR. RATE CALC > 60 mL/min (>60); GLUCOSE,RANDOM 110 mg/dL (70-110); POTASSIUM 3.6 mmol/L (3.5-5.1); SODIUM SERUM 142 mmol/L (136-145)
[2023-03-12] MEDS: FentaNYL CIT 1000MCG/0.9% NACL 100 ML IV PRN ×2 (06:26→21:23)
[2023-03-12] MEDS: SODIUM CHLORIDE 0.9% 1,000 ML IV SCH ×2 (06:26→16:18)
[2023-03-12 08:00] VITALS: BP 139/77
[2023-03-12] MEDS: LevETIRAcetam 100 MG/ML 5 ML SOLUTION UDCUP PO SCH ×2 (08:16→21:23)
[2023-03-12] MEDS: DOCUSATE SODIUM 100 MG CAPSULE PO SCH ×2 (08:16→21:23)
[2023-03-12] MEDS: LamoTRIgine 100 MG TABLET PO SCH ×2 (08:17→21:25)
[2023-03-12] MEDS: DEXAMETHASONE SOD PHOS 4 MG/ML VIAL IVP SCH (08:17)
[2023-03-12] MEDS: FUROSEMIDE 40 MG/4 ML VIAL IVP SCH ×2 (08:17→21:23)
[2023-03-12] MEDS: FAMOTIDINE 20 MG/2 ML VIAL IVP SCH ×2 (08:17→21:23)
[2023-03-12] MEDS: POTASSIUM CHL 10 MEQ/WATER 50 ML IV PRN ×2 (08:20→08:21)
[2023-03-12] MEDS: METOPROLOL TARTRATE 25 MG TABLET PO SCH (08:21)
[2023-03-12 08:31] LABS: GLUCOSE,POINT OF CARE 96 MG/DL (70-110)
[2023-03-12 12:00] VITALS: BP 126/66
[2023-03-12 12:58] LABS: ABG BASE EXCESS -0.9 mmol/L (-2.0-3.0); ABG CARBOXYHEMOGLOBIN 0.1 % (0.0-1.5); ABG HCO3 24.1 mmol/L (22.0-26.0); ABG METHEMOGLOBIN 0.3 % (0.0-1.5); ABG OXYGEN CONTENT 16.6 mL/dL (15.0-23.0); ABG OXYGEN SATURATION 93.8 % (95.0-98.0); ABG OXYHEMOGLOBIN 93.4 % (94.0-100.0); ABG PCO2 34 mmHg (35-45); ABG PH 7.451 (7.35-7.450); ABG TOTAL HEMOGLOBIN 12.6 G/dL (12.0-18.0); PO2, ARTERIAL BG 68.4 mmHg (79.0-87.0); SOURCE, BLOOD GAS ARTERIAL; TEMPERATURE, FAHRENHEIT, BG 97.6 FAHREN (96.0-98.6)
[2023-03-12 12:59] LABS: O2 DEVICE,BLOOD GAS VENTILATOR (ROOM AIR); PEEP,BG 5 cm H2O; PRESSURE SUPPORT, BG 5 cm H2O; SITE, BLOOD GAS ARTERIAL LINE; SPONTANEOUS VT, BG 456 ml; VENT MODE, BG Press. Support Vent. (ROOM AIR)
[2023-03-12 16:00] VITALS: BP 133/73
[2023-03-12] MEDS: METOCLOPRAMIDE HCL 5 MG/ML 2 ML VIAL IVP SCH (16:17)
[2023-03-12 20:00] VITALS: BP 140/77
[2023-03-13] VITALS: BP 127/64
[2023-03-13] MEDS: HEPARIN SODIUM,PORCINE 5,000 UNITS/ML VIAL SQ SCH ×4 (00:22→23:44)
[2023-03-13] MEDS: METOCLOPRAMIDE HCL 5 MG/ML 2 ML VIAL IVP SCH ×4 (00:22→23:44)
[2023-03-13 04:00] VITALS: BP 129/71
[2023-03-13] MEDS: SODIUM CHLORIDE 0.9% 1,000 ML IV SCH (04:01)
[2023-03-13] MEDS: DEXMEDETOMIDINE HCL 400 MCG in SODIUM CHLORIDE 0.9% 96 ML IV PRN ×2 (04:43→17:52)
[2023-03-13] MEDS: PROPOFOL 1000 MG/ISO-OSM 100 ML IV PRN ×2 (06:47→20:50)
[2023-03-13 08:00] VITALS: BP 114/58
[2023-03-13] MEDS: FAMOTIDINE 20 MG/2 ML VIAL IVP SCH ×2 (08:02→21:32)
[2023-03-13] MEDS: LevETIRAcetam 100 MG/ML 5 ML SOLUTION UDCUP PO SCH ×2 (08:02→21:31)
[2023-03-13] MEDS: LamoTRIgine 100 MG TABLET PO SCH ×2 (08:03→21:31)
[2023-03-13] MEDS: FUROSEMIDE 40 MG/4 ML VIAL IVP SCH ×2 (08:05→21:31)
[2023-03-13] MEDS: DEXAMETHASONE SOD PHOS 4 MG/ML VIAL IVP SCH (08:06)
[2023-03-13] MEDS: DOCUSATE SODIUM 100 MG CAPSULE PO SCH ×2 (08:07→21:31)
[2023-03-13 08:35] LABS: BASOPHILS % (AUTO) 0.5 % (0.0-2.0); EOSINOPHILS % (AUTO) 0.8 % (1.0-6.0); HEMATOCRIT 38.8 % (36-46); HEMOGLOBIN 12.9 g/dL (12.0-16.0); LYMPHOCYTES # (AUTO) 1.1 K/uL (1.0-4.8); LYMPHOCYTES % (AUTO) 13.2 % (22.0-44.0); MEAN CORPUSCULAR HEMOGLOBIN 31.4 pg (26.0-34.0); MEAN CORPUSCULAR HGB CONC 33.2 G/dL (31.0-37.0); MEAN CORPUSCULAR VOLUME 95 fL (80-100); MONOCYTES # (AUTO) 0.4 K/uL (0.1-1.0); NEUTROPHILS # (AUTO) 6.7 K/uL (1.8-7.7); NEUTROPHILS % (AUTO) 80.5 % (40.0-70.0); PLATELET COUNT (AUTO) 148 K/uL (150-450); RED CELL DISTRIBUTION WIDTH 13.8 % (11.5-14.5)
[2023-03-13 08:47] LABS: ANION GAP 11 mmol/L (8-16); CARBON DIOXIDE 25 mmol/L (22-29); CHLORIDE 101 mmol/L (98-107); CREATININE 0.39 mg/dL (0.60-1.30); GLOMERULAR FILTR. RATE CALC > 60 mL/min (>60); GLUCOSE,RANDOM 114 mg/dL (70-110); POTASSIUM 3.1 mmol/L (3.5-5.1); SODIUM SERUM 137 mmol/L (136-145)
[2023-03-13 09:01] LABS: THYROID STIMULATING HORMONE 4.01 uIU/mL (0.36-3.74)
[2023-03-13] MEDS: POTASSIUM CHL 10 MEQ/WATER 50 ML IV PRN ×3 (10:18→12:42)
[2023-03-13 12:00] VITALS: BP 157/80
[2023-03-13] MEDS: FentaNYL CIT 1000MCG/0.9% NACL 100 ML IV PRN (14:54)
[2023-03-13 15:14] LABS: ABG BASE EXCESS 4.5 mmol/L (-2.0-3.0); ABG CARBOXYHEMOGLOBIN 0.4 % (0.0-1.5); ABG HCO3 28.5 mmol/L (22.0-26.0); ABG METHEMOGLOBIN 0.3 % (0.0-1.5); ABG OXYGEN CONTENT 18.5 mL/dL (15.0-23.0); ABG OXYGEN SATURATION 93.3 % (95.0-98.0); ABG OXYHEMOGLOBIN 92.6 % (94.0-100.0); ABG PCO2 35 mmHg (35-45); ABG PH 7.511 (7.35-7.450); ABG TOTAL HEMOGLOBIN 14.2 G/dL (12.0-18.0); PO2, ARTERIAL BG 65.7 mmHg (79.0-87.0); SOURCE, BLOOD GAS ARTERIAL; TEMPERATURE, FAHRENHEIT, BG 97.7 FAHREN (96.0-98.6)
[2023-03-13 15:15] LABS: ABG A-A DIFF O2 179.5 mmHg (10-20.0); CPAP, BG 0 cm H2O; O2 DEVICE,BLOOD GAS VENTILATOR (ROOM AIR); PRESSURE SUPPORT, BG 8 cm H2O; SITE, BLOOD GAS ARTERIAL LINE; SPONTANEOUS VT, BG 450 ml; VENT MODE, BG CPAP (ROOM AIR)
[2023-03-13 16:22] VITALS: BP 120/59
[2023-03-13 20:00] VITALS: BP 126/67
[2023-03-13] MEDS: ESCITALOPRAM OXALATE 10 MG TABLET PO SCH (21:31)
[2023-03-14] VITALS: BP 109/57
[2023-03-14] MEDS: PROPOFOL 1000 MG/ISO-OSM 100 ML IV PRN ×3 (03:25→23:01)
[2023-03-14 04:00] VITALS: BP 130/55
[2023-03-14] MEDS: FentaNYL CIT 1000MCG/0.9% NACL 100 ML IV PRN ×2 (04:23→18:44)
[2023-03-14 05:39] LABS: BASOPHILS % (AUTO) 0.4 % (0.0-2.0); EOSINOPHILS % (AUTO) 0.3 % (1.0-6.0); HEMATOCRIT 37.3 % (36-46); HEMOGLOBIN 12.2 g/dL (12.0-16.0); LYMPHOCYTES # (AUTO) 1.9 K/uL (1.0-4.8); LYMPHOCYTES % (AUTO) 15.4 % (22.0-44.0); MEAN CORPUSCULAR HGB CONC 32.7 G/dL (31.0-37.0); MEAN CORPUSCULAR VOLUME 95 fL (80-100); MONOCYTES # (AUTO) 0.8 K/uL (0.1-1.0); MONOCYTES % (AUTO) 6.7 % (2.0-9.0); NEUTROPHILS # (AUTO) 9.3 K/uL (1.8-7.7); NEUTROPHILS % (AUTO) 77.2 % (40.0-70.0); PLATELET COUNT (AUTO) 150 K/uL (150-450); RED BLOOD CELL COUNT(AUTO) 3.94 MIL/uL (4.00-5.20); RED CELL DISTRIBUTION WIDTH 14.1 % (11.5-14.5)
[2023-03-14 05:48] LABS: ANION GAP 9 mmol/L (8-16); CALCIUM, TOTAL 8.2 mg/dL (8.8-10.5); CARBON DIOXIDE 28 mmol/L (22-29); CHLORIDE 99 mmol/L (98-107); CREATININE 0.52 mg/dL (0.60-1.30); GLOMERULAR FILTR. RATE CALC > 60 mL/min (>60); GLUCOSE,RANDOM 92 mg/dL (70-110); SODIUM SERUM 136 mmol/L (136-145)
[2023-03-14] MEDS: DEXMEDETOMIDINE HCL 400 MCG in SODIUM CHLORIDE 0.9% 96 ML IV PRN ×2 (06:03→12:09)
[2023-03-14] MEDS: POTASSIUM CHL 10 MEQ/WATER 50 ML IV PRN ×4 (06:35→10:15)
[2023-03-14 08:00] VITALS: BP 80/52
[2023-03-14] MEDS: LevETIRAcetam 100 MG/ML 5 ML SOLUTION UDCUP PO SCH ×2 (08:27→23:01)
[2023-03-14] MEDS: LamoTRIgine 100 MG TABLET PO SCH ×2 (08:27→23:02)
[2023-03-14] MEDS: HEPARIN SODIUM,PORCINE 5,000 UNITS/ML VIAL SQ SCH ×3 (08:28→23:04)
[2023-03-14] MEDS: FAMOTIDINE 20 MG/2 ML VIAL IVP SCH ×2 (08:28→23:06)
[2023-03-14] MEDS: METOCLOPRAMIDE HCL 5 MG/ML 2 ML VIAL IVP SCH ×3 (08:29→23:05)
[2023-03-14] MEDS: DEXAMETHASONE SOD PHOS 4 MG/ML VIAL IVP SCH (08:29)
[2023-03-14] MEDS: DOCUSATE SODIUM 100 MG/10 ML LIQUID UDCUP NG SCH ×2 (10:14→23:01)
[2023-03-14] MEDS: FUROSEMIDE 40 MG/4 ML VIAL IVP SCH ×2 (11:28→23:03)
[2023-03-14 12:00] VITALS: BP 92/53
[2023-03-14 16:40] VITALS: BP 93/52
[2023-03-14 20:00] VITALS: BP 122/64
[2023-03-14] MEDS: ESCITALOPRAM OXALATE 10 MG TABLET PO SCH (23:02)
[2023-03-15] VITALS: BP 108/56
[2023-03-15] MEDS: DEXMEDETOMIDINE HCL 400 MCG in SODIUM CHLORIDE 0.9% 96 ML IV PRN ×3 (02:25→20:28)
[2023-03-15 04:00] VITALS: BP 108/57
[2023-03-15 06:17] LABS: BASOPHILS % (AUTO) 0.5 % (0.0-2.0); EOSINOPHILS % (AUTO) 0.4 % (1.0-6.0); HEMATOCRIT 38.7 % (36-46); HEMOGLOBIN 12.9 g/dL (12.0-16.0); LYMPHOCYTES # (AUTO) 2.2 K/uL (1.0-4.8); LYMPHOCYTES % (AUTO) 21.4 % (22.0-44.0); MEAN CORPUSCULAR HEMOGLOBIN 31.3 pg (26.0-34.0); MEAN CORPUSCULAR HGB CONC 33.2 G/dL (31.0-37.0); MEAN CORPUSCULAR VOLUME 94 fL (80-100); MONOCYTES # (AUTO) 0.8 K/uL (0.1-1.0); MONOCYTES % (AUTO) 7.8 % (2.0-9.0); NEUTROPHILS # (AUTO) 7.1 K/uL (1.8-7.7); NEUTROPHILS % (AUTO) 69.9 % (40.0-70.0); PLATELET COUNT (AUTO) 134 K/uL (150-450); RED CELL DISTRIBUTION WIDTH 14.4 % (11.5-14.5)
[2023-03-15 06:27] LABS: ANION GAP 8 mmol/L (8-16); CALCIUM, TOTAL 8.8 mg/dL (8.8-10.5); CARBON DIOXIDE 29 mmol/L (22-29); CHLORIDE 99 mmol/L (98-107); CREATININE 0.47 mg/dL (0.60-1.30); GLOMERULAR FILTR. RATE CALC > 60 mL/min (>60); GLUCOSE,RANDOM 119 mg/dL (70-110); SODIUM SERUM 136 mmol/L (136-145)
[2023-03-15 06:41] LABS: POTASSIUM 2.7 mmol/L (3.5-5.1)
[2023-03-15] MEDS: POTASSIUM CHL 10 MEQ/WATER 50 ML IV PRN ×4 (06:46→11:12)
[2023-03-15 08:00] VITALS: BP 85/52
[2023-03-15] MEDS: METOCLOPRAMIDE HCL 5 MG/ML 2 ML VIAL IVP SCH ×2 (08:23→15:59)
[2023-03-15] MEDS: DEXAMETHASONE SOD PHOS 4 MG/ML VIAL IVP SCH (08:23)
[2023-03-15] MEDS: HEPARIN SODIUM,PORCINE 5,000 UNITS/ML VIAL SQ SCH ×2 (08:23→15:59)
[2023-03-15] MEDS: FAMOTIDINE 20 MG/2 ML VIAL IVP SCH ×2 (08:24→21:37)
[2023-03-15] MEDS: LevETIRAcetam 100 MG/ML 5 ML SOLUTION UDCUP PO SCH ×2 (08:24→21:36)
[2023-03-15] MEDS: FUROSEMIDE 40 MG/4 ML VIAL IVP SCH ×2 (08:24→21:35)
[2023-03-15] MEDS: ATORVASTATIN CALCIUM 20 MG TABLET NG SCH (08:24)
[2023-03-15] MEDS: ASPIRIN 81 MG CHEWABLE TABLET NG SCH (08:24)
[2023-03-15] MEDS: LamoTRIgine 100 MG TABLET PO SCH ×2 (08:25→21:36)
[2023-03-15] MEDS: ALBUTEROL SULFATE 2.5 MG/0.5 ML NEB SOLUTION NEB PRN (09:04)
[2023-03-15] MEDS: IPRATROPIUM BROMIDE 0.5 MG/2.5 ML NEB SOLUTION NEB PRN (09:04)
[2023-03-15 12:00] VITALS: BP 104/50
[2023-03-15 12:22] LABS: ABG BASE EXCESS 7.3 mmol/L (-2.0-3.0); ABG CARBOXYHEMOGLOBIN 0.3 % (0.0-1.5); ABG HCO3 30.4 mmol/L (22.0-26.0); ABG METHEMOGLOBIN 0.3 % (0.0-1.5); ABG OXYGEN CONTENT 16.9 mL/dL (15.0-23.0); ABG OXYGEN SATURATION 93.8 % (95.0-98.0); ABG OXYHEMOGLOBIN 93.2 % (94.0-100.0); ABG PCO2 42 mmHg (35-45); ABG PH 7.482 (7.35-7.450); ABG TOTAL HEMOGLOBIN 12.9 G/dL (12.0-18.0); PO2, ARTERIAL BG 73.1 mmHg (79.0-87.0); SOURCE, BLOOD GAS ARTERIAL; TEMPERATURE, FAHRENHEIT, BG 98.9 FAHREN (96.0-98.6)
[2023-03-15] MEDS: PROPOFOL 1000 MG/ISO-OSM 100 ML IV PRN ×2 (12:22→18:29)
[2023-03-15] MEDS: FentaNYL CIT 1000MCG/0.9% NACL 100 ML IV PRN (12:22)
[2023-03-15 12:23] LABS: ABG A-A DIFF O2 163.5 mmHg (10-20.0); CPAP, BG 0 cm H2O; O2 DEVICE,BLOOD GAS VENTILATOR (ROOM AIR); PRESSURE SUPPORT, BG 8 cm H2O; SITE, BLOOD GAS ARTERIAL LINE; SPONTANEOUS VT, BG 425 ml; VENT MODE, BG CPAP (ROOM AIR)
[2023-03-15 16:00] VITALS: BP 122/65
[2023-03-15 20:00] VITALS: BP 106/56
[2023-03-15] MEDS: QUEtiapine FUMARATE 25 MG TABLET PO SCH (21:36)
[2023-03-15] MEDS: ESCITALOPRAM OXALATE 10 MG TABLET PO SCH (21:37)
[2023-03-16] VITALS: BP 98/52
[2023-03-16] MEDS: METOCLOPRAMIDE HCL 5 MG/ML 2 ML VIAL IVP SCH ×3 (00:14→16:11)
[2023-03-16] MEDS: HEPARIN SODIUM,PORCINE 5,000 UNITS/ML VIAL SQ SCH ×3 (00:15→16:11)
[2023-03-16] MEDS: PROPOFOL 1000 MG/ISO-OSM 100 ML IV PRN (00:16)
[2023-03-16 04:00] VITALS: BP 109/56
[2023-03-16] MEDS: DEXMEDETOMIDINE HCL 400 MCG in SODIUM CHLORIDE 0.9% 96 ML IV PRN ×4 (05:01→20:28)
[2023-03-16 05:40] LABS: BASOPHILS % (AUTO) 0.3 % (0.0-2.0); EOSINOPHILS % (AUTO) 0.4 % (1.0-6.0); HEMATOCRIT 37.2 % (36-46); HEMOGLOBIN 12.2 g/dL (12.0-16.0); LYMPHOCYTES % (AUTO) 17.8 % (22.0-44.0); MEAN CORPUSCULAR HEMOGLOBIN 31.2 pg (26.0-34.0); MEAN CORPUSCULAR HGB CONC 32.8 G/dL (31.0-37.0); MEAN CORPUSCULAR VOLUME 95 fL (80-100); MONOCYTES # (AUTO) 0.7 K/uL (0.1-1.0); MONOCYTES % (AUTO) 6.3 % (2.0-9.0); NEUTROPHILS # (AUTO) 8.3 K/uL (1.8-7.7); NEUTROPHILS % (AUTO) 75.2 % (40.0-70.0); PLATELET COUNT (AUTO) 143 K/uL (150-450); RED BLOOD CELL COUNT(AUTO) 3.91 MIL/uL (4.00-5.20); RED CELL DISTRIBUTION WIDTH 14.3 % (11.5-14.5)
[2023-03-16 06:01] LABS: ANION GAP 7 mmol/L (8-16); CALCIUM, TOTAL 8.5 mg/dL (8.8-10.5); CARBON DIOXIDE 29 mmol/L (22-29); CHLORIDE 101 mmol/L (98-107); CREATININE 0.43 mg/dL (0.60-1.30); GLOMERULAR FILTR. RATE CALC > 60 mL/min (>60); GLUCOSE,RANDOM 117 mg/dL (70-110); POTASSIUM 3.1 mmol/L (3.5-5.1); SODIUM SERUM 137 mmol/L (136-145)
[2023-03-16 08:00] VITALS: BP 93/44
[2023-03-16] MEDS: FAMOTIDINE 20 MG/2 ML VIAL IVP SCH ×2 (08:05→21:25)
[2023-03-16] MEDS: FUROSEMIDE 40 MG/4 ML VIAL IVP SCH ×2 (08:05→21:00)
[2023-03-16] MEDS: ATORVASTATIN CALCIUM 20 MG TABLET NG SCH (08:06)
[2023-03-16] MEDS: ASPIRIN 81 MG CHEWABLE TABLET NG SCH (08:06)
[2023-03-16] MEDS: LevETIRAcetam 100 MG/ML 5 ML SOLUTION UDCUP PO SCH ×2 (08:06→21:24)
[2023-03-16] MEDS: DOCUSATE SODIUM 100 MG/10 ML LIQUID UDCUP NG SCH (08:06)
[2023-03-16] MEDS: LamoTRIgine 100 MG TABLET PO SCH ×2 (08:07→21:24)
[2023-03-16] MEDS: POTASSIUM CHL 10 MEQ/WATER 50 ML IV PRN ×4 (08:08→18:59)
[2023-03-16] MEDS ORDERED: SODIUM CHLORIDE 0.9% 1,000 ML IV ONE (09:45)
[2023-03-16 12:00] VITALS: BP 116/53
[2023-03-16] MEDS ORDERED: SODIUM CHLORIDE 0.9% 250 ML IV ONE (12:26)
[2023-03-16 14:19] LABS: ABG BASE EXCESS 6.1 mmol/L (-2.0-3.0); ABG CARBOXYHEMOGLOBIN 0.1 % (0.0-1.5); ABG HCO3 29.6 mmol/L (22.0-26.0); ABG METHEMOGLOBIN 0.3 % (0.0-1.5); ABG OXYGEN CONTENT 16.9 mL/dL (15.0-23.0); ABG OXYGEN SATURATION 94.3 % (95.0-98.0); ABG OXYHEMOGLOBIN 93.9 % (94.0-100.0); ABG PCO2 40 mmHg (35-45); ABG TOTAL HEMOGLOBIN 12.8 G/dL (12.0-18.0); O2 DEVICE,BLOOD GAS VENTILATOR (ROOM AIR); PEEP,BG 5 cm H2O; PO2, ARTERIAL BG 75.4 mmHg (79.0-87.0); PRESSURE SUPPORT, BG 5 cm H2O; SITE, BLOOD GAS ARTERIAL LINE; SOURCE, BLOOD GAS ARTERIAL; SPONTANEOUS VT, BG 438 ml; TEMPERATURE, FAHRENHEIT, BG 99.4 FAHREN (96.0-98.6); VENT MODE, BG Press. Support Vent. (ROOM AIR)
[2023-03-16 16:00] VITALS: BP 97/47
[2023-03-16 20:00] VITALS: BP 150/71
[2023-03-16] MEDS: ESCITALOPRAM OXALATE 10 MG TABLET PO SCH (21:25)
[2023-03-16] MEDS: QUEtiapine FUMARATE 25 MG TABLET PO SCH (21:25)
[2023-03-17] VITALS: BP 92/42
[2023-03-17] MEDS: METOCLOPRAMIDE HCL 5 MG/ML 2 ML VIAL IVP SCH ×5 (00:28→23:23)
[2023-03-17] MEDS: HEPARIN SODIUM,PORCINE 5,000 UNITS/ML VIAL SQ SCH ×5 (00:28→23:23)
[2023-03-17] MEDS: DEXMEDETOMIDINE HCL 400 MCG in SODIUM CHLORIDE 0.9% 96 ML IV PRN ×2 (00:29→08:50)
[2023-03-17 04:00] VITALS: BP 141/61
[2023-03-17 05:58] LABS: BASOPHILS % (AUTO) 0.7 % (0.0-2.0); EOSINOPHILS % (AUTO) 0.5 % (1.0-6.0); HEMATOCRIT 39.5 % (36-46); HEMOGLOBIN 12.8 g/dL (12.0-16.0); LYMPHOCYTES # (AUTO) 1.9 K/uL (1.0-4.8); LYMPHOCYTES % (AUTO) 11.8 % (22.0-44.0); MEAN CORPUSCULAR HEMOGLOBIN 30.9 pg (26.0-34.0); MEAN CORPUSCULAR HGB CONC 32.4 G/dL (31.0-37.0); MEAN CORPUSCULAR VOLUME 95 fL (80-100); MONOCYTES # (AUTO) 0.7 K/uL (0.1-1.0); MONOCYTES % (AUTO) 4.2 % (2.0-9.0); NEUTROPHILS # (AUTO) 13.2 K/uL (1.8-7.7); NEUTROPHILS % (AUTO) 82.8 % (40.0-70.0); PLATELET COUNT (AUTO) 187 K/uL (150-450); RED BLOOD CELL COUNT(AUTO) 4.14 MIL/uL (4.00-5.20)
[2023-03-17 05:59] LABS: ANION GAP 8 mmol/L (8-16); CALCIUM, TOTAL 8.4 mg/dL (8.8-10.5); CARBON DIOXIDE 28 mmol/L (22-29); CHLORIDE 107 mmol/L (98-107); CREATININE 0.42 mg/dL (0.60-1.30); GLOMERULAR FILTR. RATE CALC > 60 mL/min (>60); GLUCOSE,RANDOM 99 mg/dL (70-110); POTASSIUM 3.4 mmol/L (3.5-5.1); SODIUM SERUM 143 mmol/L (136-145)
[2023-03-17] MEDS: POTASSIUM CHL 10 MEQ/WATER 50 ML IV PRN ×3 (06:30→11:43)
[2023-03-17 08:00] VITALS: BP 124/65
[2023-03-17] MEDS: DOCUSATE SODIUM 100 MG/10 ML LIQUID UDCUP NG SCH (08:46)
[2023-03-17] MEDS: ASPIRIN 81 MG CHEWABLE TABLET NG SCH (08:47)
[2023-03-17] MEDS: LevETIRAcetam 100 MG/ML 5 ML SOLUTION UDCUP PO SCH ×2 (08:47→21:58)
[2023-03-17] MEDS: FAMOTIDINE 20 MG/2 ML VIAL IVP SCH ×2 (08:48→21:58)
[2023-03-17] MEDS: BISACODYL 10 MG RECTAL RECTAL SUPPOSITORY PR PRN (08:48)
[2023-03-17] MEDS: LamoTRIgine 100 MG TABLET PO SCH ×2 (08:48→21:58)
[2023-03-17] MEDS: ATORVASTATIN CALCIUM 20 MG TABLET NG SCH (08:48)
[2023-03-17 12:00] VITALS: BP 140/65
[2023-03-17 16:00] VITALS: BP 127/77
[2023-03-17 20:00] VITALS: BP 156/79
[2023-03-17] MEDS: ESCITALOPRAM OXALATE 10 MG TABLET PO SCH (21:57)
[2023-03-17] MEDS: QUEtiapine FUMARATE 25 MG TABLET PO SCH (21:57)
[2023-03-17] MEDS: METOPROLOL TARTRATE 5 MG/5 ML VIAL IVP ONE ×2 (22:45→22:58)
[2023-03-18] VITALS: BP 99/49
[2023-03-18] MEDS ORDERED: SODIUM CHLORIDE 0.9% 250 ML IV ONE (03:17)
[2023-03-18 04:00] VITALS: BP 121/65
[2023-03-18 08:00] VITALS: BP 152/78
[2023-03-18] MEDS: LevETIRAcetam 100 MG/ML 5 ML SOLUTION UDCUP PO SCH ×2 (08:25→21:03)
[2023-03-18] MEDS: METOCLOPRAMIDE HCL 5 MG/ML 2 ML VIAL IVP SCH ×3 (08:26→16:26)
[2023-03-18] MEDS: LamoTRIgine 100 MG TABLET PO SCH ×2 (08:27→21:03)
[2023-03-18] MEDS: FUROSEMIDE 40 MG/4 ML VIAL IVP SCH (08:27)
[2023-03-18] MEDS: HEPARIN SODIUM,PORCINE 5,000 UNITS/ML VIAL SQ SCH ×4 (08:28→23:59)
[2023-03-18] MEDS: ASPIRIN 81 MG CHEWABLE TABLET NG SCH (08:28)
[2023-03-18] MEDS: ATORVASTATIN CALCIUM 20 MG TABLET NG SCH (08:28)
[2023-03-18] MEDS: FAMOTIDINE 20 MG/2 ML VIAL IVP SCH ×2 (08:28→21:02)
[2023-03-18] MEDS: DOCUSATE SODIUM 100 MG/10 ML LIQUID UDCUP NG SCH (09:00)
[2023-03-18 09:30] LABS: BASOPHILS % (AUTO) 0.8 % (0.0-2.0); EOSINOPHILS % (AUTO) 0.7 % (1.0-6.0); HEMATOCRIT 43.4 % (36-46); HEMOGLOBIN 14.2 g/dL (12.0-16.0); LYMPHOCYTES # (AUTO) 1.5 K/uL (1.0-4.8); LYMPHOCYTES % (AUTO) 10.1 % (22.0-44.0); MEAN CORPUSCULAR HEMOGLOBIN 31.3 pg (26.0-34.0); MEAN CORPUSCULAR HGB CONC 32.7 G/dL (31.0-37.0); MEAN CORPUSCULAR VOLUME 96 fL (80-100); MONOCYTES # (AUTO) 0.4 K/uL (0.1-1.0); MONOCYTES % (AUTO) 2.7 % (2.0-9.0); NEUTROPHILS # (AUTO) 13.1 K/uL (1.8-7.7); NEUTROPHILS % (AUTO) 85.7 % (40.0-70.0); PLATELET COUNT (AUTO) 214 K/uL (150-450); RED BLOOD CELL COUNT(AUTO) 4.53 MIL/uL (4.00-5.20); RED CELL DISTRIBUTION WIDTH 15.4 % (11.5-14.5)
[2023-03-18 09:37] LABS: ANION GAP 11 mmol/L (8-16); CALCIUM, TOTAL 9.2 mg/dL (8.8-10.5); CARBON DIOXIDE 28 mmol/L (22-29); CHLORIDE 103 mmol/L (98-107); CREATININE 0.47 mg/dL (0.60-1.30); GLOMERULAR FILTR. RATE CALC > 60 mL/min (>60); GLUCOSE,RANDOM 137 mg/dL (70-110); POTASSIUM 3.6 mmol/L (3.5-5.1); SODIUM SERUM 142 mmol/L (136-145)
[2023-03-18 12:00] VITALS: BP 152/79
[2023-03-18 16:00] VITALS: BP 166/95
[2023-03-18] MEDS: HydrALAZINE HCL 20 MG/ML VIAL IVP PRN ×2 (16:25→21:02)
[2023-03-18] MEDS: IPRATROPIUM BROMIDE 0.5 MG/2.5 ML NEB SOLUTION NEB SCH ×2 (19:44→23:06)
[2023-03-18] MEDS: ALBUTEROL SULFATE 2.5 MG/0.5 ML NEB SOLUTION NEB SCH ×2 (19:44→23:06)
[2023-03-18] MEDS: ACETYLCYSTEINE 10% 100 MG/ML 4 ML NEB SOLUTION NEB SCH ×2 (19:44→23:06)
[2023-03-18 20:00] VITALS: BP 162/81
[2023-03-18] MEDS: QUEtiapine FUMARATE 25 MG TABLET PO SCH (21:02)
[2023-03-18] MEDS: ESCITALOPRAM OXALATE 10 MG TABLET PO SCH (21:03)
[2023-03-19] VITALS: BP 133/66
[2023-03-19] MEDS: ALBUTEROL SULFATE 2.5 MG/0.5 ML NEB SOLUTION NEB SCH ×6 (03:12→22:44)
[2023-03-19] MEDS: ACETYLCYSTEINE 10% 100 MG/ML 4 ML NEB SOLUTION NEB SCH ×6 (03:12→22:44)
[2023-03-19] MEDS: IPRATROPIUM BROMIDE 0.5 MG/2.5 ML NEB SOLUTION NEB SCH ×6 (03:13→22:44)
[2023-03-19 04:00] VITALS: BP 132/66
[2023-03-19 05:40] LABS: ANION GAP 11 mmol/L (8-16); CALCIUM, TOTAL 9.3 mg/dL (8.8-10.5); CARBON DIOXIDE 26 mmol/L (22-29); CHLORIDE 102 mmol/L (98-107); CREATININE 0.44 mg/dL (0.60-1.30); GLOMERULAR FILTR. RATE CALC > 60 mL/min (>60); GLUCOSE,RANDOM 114 mg/dL (70-110); POTASSIUM 3.7 mmol/L (3.5-5.1); SODIUM SERUM 139 mmol/L (136-145)
[2023-03-19 08:00] VITALS: BP 138/75
[2023-03-19] MEDS: DOCUSATE SODIUM 100 MG/10 ML LIQUID UDCUP NG SCH (09:00)
[2023-03-19] MEDS: LevETIRAcetam 100 MG/ML 5 ML SOLUTION UDCUP PO SCH (10:08)
[2023-03-19] MEDS: ASPIRIN 81 MG CHEWABLE TABLET NG SCH (10:08)
[2023-03-19] MEDS: ATORVASTATIN CALCIUM 20 MG TABLET NG SCH (10:08)
[2023-03-19] MEDS: METOCLOPRAMIDE HCL 5 MG/ML 2 ML VIAL IVP SCH ×2 (10:09)
[2023-03-19] MEDS: FUROSEMIDE 40 MG/4 ML VIAL IVP SCH (10:09)
[2023-03-19] MEDS: HEPARIN SODIUM,PORCINE 5,000 UNITS/ML VIAL SQ SCH ×3 (10:09→23:03)
[2023-03-19] MEDS: FAMOTIDINE 20 MG/2 ML VIAL IVP SCH ×2 (10:09→21:43)
[2023-03-19] MEDS: LamoTRIgine 100 MG TABLET PO SCH ×2 (10:10→21:42)
[2023-03-19] MEDS ORDERED: METOPROLOL TARTRATE 5 MG/5 ML VIAL IVP PRN (10:15)
[2023-03-19 12:00] VITALS: BP 129/72
[2023-03-19 16:00] VITALS: BP 116/64
[2023-03-19] MEDS: METOPROLOL TARTRATE 5 MG/5 ML VIAL IVP SCH ×2 (16:18→23:03)
[2023-03-19] MEDS: NICOTINE 21 MG/24 HOUR PATCH TD SCH (17:06)
[2023-03-19] MEDS ORDERED: SODIUM CHLORIDE 0.9% 250 ML IV ONE (19:41)
[2023-03-19 20:00] VITALS: BP 128/71
[2023-03-19] MEDS: LevETIRAcetam 500 MG in DEXTROSE 5%-WATER 100 ML IV SCH (20:08)
[2023-03-19] MEDS: QUEtiapine FUMARATE 25 MG TABLET PO SCH (21:43)
[2023-03-19] MEDS: ESCITALOPRAM OXALATE 10 MG TABLET PO SCH (21:43)
[2023-03-20] VITALS: BP 107/50
[2023-03-20] MEDS: ACETYLCYSTEINE 10% 100 MG/ML 4 ML NEB SOLUTION NEB SCH ×6 (02:43→23:02)
[2023-03-20] MEDS: ALBUTEROL SULFATE 2.5 MG/0.5 ML NEB SOLUTION NEB SCH ×6 (02:44→23:02)
[2023-03-20] MEDS: IPRATROPIUM BROMIDE 0.5 MG/2.5 ML NEB SOLUTION NEB SCH ×6 (02:44→23:02)
[2023-03-20 04:00] VITALS: BP 128/71
[2023-03-20] MEDS: METOPROLOL TARTRATE 5 MG/5 ML VIAL IVP SCH ×2 (04:55→08:34)
[2023-03-20 06:18] LABS: ANION GAP 10 mmol/L (8-16); CALCIUM, TOTAL 9.2 mg/dL (8.8-10.5); CARBON DIOXIDE 27 mmol/L (22-29); CHLORIDE 106 mmol/L (98-107); CREATININE 0.45 mg/dL (0.60-1.30); GLOMERULAR FILTR. RATE CALC > 60 mL/min (>60); GLUCOSE,RANDOM 105 mg/dL (70-110); POTASSIUM 3.4 mmol/L (3.5-5.1); SODIUM SERUM 143 mmol/L (136-145)
[2023-03-20] MEDS: POTASSIUM CHL 10 MEQ/WATER 50 ML IV PRN ×4 (06:41→13:12)
[2023-03-20 08:00] VITALS: BP 129/66
[2023-03-20] MEDS: HEPARIN SODIUM,PORCINE 5,000 UNITS/ML VIAL SQ SCH ×3 (08:33→23:12)
[2023-03-20] MEDS: FAMOTIDINE 20 MG/2 ML VIAL IVP SCH ×2 (08:34→20:48)
[2023-03-20] MEDS: FUROSEMIDE 40 MG/4 ML VIAL IVP SCH (08:35)
[2023-03-20] MEDS: LamoTRIgine 100 MG TABLET PO SCH ×2 (08:36→20:48)
[2023-03-20] MEDS: DOCUSATE SODIUM 100 MG/10 ML LIQUID UDCUP NG SCH (08:36)
[2023-03-20] MEDS: ATORVASTATIN CALCIUM 20 MG TABLET NG SCH (08:36)
[2023-03-20] MEDS: ASPIRIN 81 MG CHEWABLE TABLET NG SCH (08:36)
[2023-03-20] MEDS: LevETIRAcetam 500 MG in DEXTROSE 5%-WATER 100 ML IV SCH ×2 (08:37→20:41)
[2023-03-20] MEDS: NICOTINE 21 MG/24 HOUR PATCH TD SCH (08:37)
[2023-03-20 12:00] VITALS: BP 117/66
[2023-03-20 15:03] LABS: COVID AG,FIA SOURCE NASOPHARYNGEAL
[2023-03-20 15:38] LABS: ANION GAP 9 mmol/L (8-16); CALCIUM, TOTAL 9.4 mg/dL (8.8-10.5); CARBON DIOXIDE 27 mmol/L (22-29); CHLORIDE 106 mmol/L (98-107); GLOMERULAR FILTR. RATE CALC > 60 mL/min (>60); GLUCOSE,RANDOM 114 mg/dL (70-110); POTASSIUM 3.7 mmol/L (3.5-5.1); SODIUM SERUM 142 mmol/L (136-145)
[2023-03-20 16:00] VITALS: BP 126/61
[2023-03-20 20:00] VITALS: BP 139/65
[2023-03-20] MEDS: METOPROLOL TARTRATE 25 MG TABLET PO SCH (20:49)
[2023-03-20] MEDS: QUEtiapine FUMARATE 25 MG TABLET PO SCH (20:49)
[2023-03-20] MEDS: ESCITALOPRAM OXALATE 10 MG TABLET PO SCH (20:50)
[2023-03-20] MEDS ORDERED: AMIODARONE HCL 360 MG in DEXTROSE 5%-WATER 242.8 ML IV ONE (23:00)
[2023-03-21] VITALS (7 sets, daily range): BP systolic 110–121; BP diastolic 63–78
[2023-03-21] MEDS: ALBUTEROL SULFATE 2.5 MG/0.5 ML NEB SOLUTION NEB SCH ×7 (03:00→23:24)
[2023-03-21] MEDS: IPRATROPIUM BROMIDE 0.5 MG/2.5 ML NEB SOLUTION NEB SCH ×6 (03:36→23:24)
[2023-03-21] MEDS: ACETYLCYSTEINE 10% 100 MG/ML 4 ML NEB SOLUTION NEB SCH ×6 (03:36→23:25)
[2023-03-21] MEDS ORDERED: AMIODARONE HCL 540 MG in DEXTROSE 5%-WATER 239.2 ML IV ONE (05:00)
[2023-03-21 05:22] LABS: BASOPHILS % (AUTO) 0.7 % (0.0-2.0); EOSINOPHILS % (AUTO) 0.8 % (1.0-6.0); HEMATOCRIT 39.3 % (36-46); HEMOGLOBIN 12.8 g/dL (12.0-16.0); LYMPHOCYTES # (AUTO) 1.2 K/uL (1.0-4.8); LYMPHOCYTES % (AUTO) 12.7 % (22.0-44.0); MEAN CORPUSCULAR HEMOGLOBIN 31.4 pg (26.0-34.0); MEAN CORPUSCULAR HGB CONC 32.5 G/dL (31.0-37.0); MEAN CORPUSCULAR VOLUME 97 fL (80-100); MONOCYTES # (AUTO) 0.8 K/uL (0.1-1.0); MONOCYTES % (AUTO) 8.3 % (2.0-9.0); NEUTROPHILS # (AUTO) 7.6 K/uL (1.8-7.7); NEUTROPHILS % (AUTO) 77.5 % (40.0-70.0); PLATELET COUNT (AUTO) 255 K/uL (150-450); RED BLOOD CELL COUNT(AUTO) 4.07 MIL/uL (4.00-5.20); RED CELL DISTRIBUTION WIDTH 16.3 % (11.5-14.5)
[2023-03-21 05:36] LABS: ANION GAP 8 mmol/L (8-16); CALCIUM, TOTAL 9.2 mg/dL (8.8-10.5); CARBON DIOXIDE 27 mmol/L (22-29); CHLORIDE 107 mmol/L (98-107); CREATININE 0.46 mg/dL (0.60-1.30); GLOMERULAR FILTR. RATE CALC > 60 mL/min (>60); GLUCOSE,RANDOM 115 mg/dL (70-110); POTASSIUM 3.5 mmol/L (3.5-5.1); SODIUM SERUM 142 mmol/L (136-145)
[2023-03-21] MEDS: POTASSIUM CHL 10 MEQ/WATER 50 ML IV PRN ×2 (06:28→07:26)
[2023-03-21] MEDS: LevETIRAcetam 500 MG in DEXTROSE 5%-WATER 100 ML IV SCH ×2 (07:46→21:00)
[2023-03-21] MEDS: DOCUSATE SODIUM 100 MG/10 ML LIQUID UDCUP NG SCH (07:47)
[2023-03-21] MEDS: NICOTINE 21 MG/24 HOUR PATCH TD SCH (07:47)
[2023-03-21] MEDS: METOPROLOL TARTRATE 25 MG TABLET PO SCH ×2 (07:47→21:01)
[2023-03-21] MEDS: ASPIRIN 81 MG CHEWABLE TABLET NG SCH (07:48)
[2023-03-21] MEDS: LamoTRIgine 100 MG TABLET PO SCH ×2 (07:48→21:01)
[2023-03-21] MEDS: HEPARIN SODIUM,PORCINE 5,000 UNITS/ML VIAL SQ SCH ×2 (07:49→16:00)
[2023-03-21] MEDS: FUROSEMIDE 40 MG/4 ML VIAL IVP SCH (07:49)
[2023-03-21] MEDS: FAMOTIDINE 20 MG/2 ML VIAL IVP SCH ×2 (07:49→21:01)
[2023-03-21] MEDS: ATORVASTATIN CALCIUM 20 MG TABLET NG SCH (09:03)
[2023-03-21] MEDS ORDERED: SODIUM CHLORIDE 0.9% 500 ML IV ONE (20:59)
[2023-03-21] MEDS: AMIODARONE HCL 200 MG TABLET PO SCH (21:00)
[2023-03-21] MEDS: ESCITALOPRAM OXALATE 10 MG TABLET PO SCH (21:01)
[2023-03-21] MEDS: QUEtiapine FUMARATE 25 MG TABLET PO SCH (21:01)
[2023-03-21] MEDS ORDERED: AMIODARONE HCL 750 MG in DEXTROSE 5%-WATER 485 ML IV SCH ×4 (23:00)
[2023-03-22] VITALS (7 sets, daily range): BP systolic 103–145; BP diastolic 49–76
[2023-03-22] MEDS: HEPARIN SODIUM,PORCINE 5,000 UNITS/ML VIAL SQ SCH ×4 (00:19→23:58)
[2023-03-22] MEDS ORDERED: AMIODARONE HCL 540 MG in DEXTROSE 5%-WATER 239.2 ML IV ONE (02:00)
[2023-03-22] MEDS: IPRATROPIUM BROMIDE 0.5 MG/2.5 ML NEB SOLUTION NEB SCH ×6 (03:45→22:26)
[2023-03-22] MEDS: ALBUTEROL SULFATE 2.5 MG/0.5 ML NEB SOLUTION NEB SCH ×6 (03:45→22:26)
[2023-03-22] MEDS: ACETYLCYSTEINE 10% 100 MG/ML 4 ML NEB SOLUTION NEB SCH ×6 (03:46→22:31)
[2023-03-22] MEDS: AMIODARONE HCL 200 MG TABLET PO SCH ×3 (06:49→20:49)
[2023-03-22] MEDS ORDERED: SODIUM CHLORIDE 0.9% 250 ML IV ONE (07:55)
[2023-03-22] MEDS: LevETIRAcetam 500 MG in DEXTROSE 5%-WATER 100 ML IV SCH ×2 (08:03→20:48)
[2023-03-22] MEDS: METOPROLOL TARTRATE 25 MG TABLET PO SCH ×2 (08:09→20:49)
[2023-03-22] MEDS: ATORVASTATIN CALCIUM 20 MG TABLET NG SCH (08:11)
[2023-03-22] MEDS: ASPIRIN 81 MG CHEWABLE TABLET NG SCH (08:12)
[2023-03-22] MEDS: DOCUSATE SODIUM 100 MG/10 ML LIQUID UDCUP NG SCH (08:13)
[2023-03-22] MEDS: LamoTRIgine 100 MG TABLET PO SCH ×2 (08:13→22:13)
[2023-03-22] MEDS: FAMOTIDINE 20 MG/2 ML VIAL IVP SCH ×2 (08:14→20:49)
[2023-03-22] MEDS: NICOTINE 21 MG/24 HOUR PATCH TD SCH (08:14)
[2023-03-22] MEDS: FUROSEMIDE 40 MG/4 ML VIAL IVP SCH (08:19)
[2023-03-22] MEDS: BISACODYL 10 MG RECTAL RECTAL SUPPOSITORY PR PRN (18:53)
[2023-03-22] MEDS: QUEtiapine FUMARATE 25 MG TABLET PO SCH (20:49)
[2023-03-22] MEDS: ESCITALOPRAM OXALATE 10 MG TABLET PO SCH (20:51)
[2023-03-23] MEDS: ALBUTEROL SULFATE 2.5 MG/0.5 ML NEB SOLUTION NEB SCH ×4 (02:11→15:37)
[2023-03-23] MEDS: IPRATROPIUM BROMIDE 0.5 MG/2.5 ML NEB SOLUTION NEB SCH ×4 (02:11→15:37)
[2023-03-23] MEDS: ACETYLCYSTEINE 10% 100 MG/ML 4 ML NEB SOLUTION NEB SCH ×4 (02:12→15:36)
[2023-03-23 04:09] VITALS: BP 112/61
[2023-03-23 07:49] VITALS: BP 112/53
[2023-03-23] MEDS: LevETIRAcetam 500 MG in DEXTROSE 5%-WATER 100 ML IV SCH (08:43)
[2023-03-23] MEDS: DOCUSATE SODIUM 100 MG/10 ML LIQUID UDCUP NG SCH (08:44)
[2023-03-23] MEDS: ASPIRIN 81 MG CHEWABLE TABLET NG SCH (08:44)
[2023-03-23] MEDS: AMIODARONE HCL 200 MG TABLET PO SCH (08:44)
[2023-03-23] MEDS: NICOTINE 21 MG/24 HOUR PATCH TD SCH (08:44)
[2023-03-23] MEDS: METOPROLOL TARTRATE 25 MG TABLET PO SCH (08:44)
[2023-03-23] MEDS: FAMOTIDINE 20 MG/2 ML VIAL IVP SCH (08:45)
[2023-03-23] MEDS: FUROSEMIDE 40 MG/4 ML VIAL IVP SCH (08:45)
[2023-03-23] MEDS: HEPARIN SODIUM,PORCINE 5,000 UNITS/ML VIAL SQ SCH ×2 (08:45→16:00)
[2023-03-23] MEDS: ATORVASTATIN CALCIUM 20 MG TABLET NG SCH (08:45)
[2023-03-23] MEDS: LamoTRIgine 100 MG TABLET PO SCH (08:45)
[2023-03-23 11:11] VITALS: BP 106/67
[2023-03-23 15:44] VITALS: BP 115/65
== END 2023-03-23 18:13 | DRG 870 ==
LOC: EMS 02:58 → ICU 05:01 → EMS 10:49 → 5S 03-21 17:00
PROVIDERS: ADMIT Internal Medicine; ATTEND Internal Medicine
PROC: 5A09457 Assistance with Respiratory Ventilation, 24-96 Consecutive Hours, Continuous Positive Airway Pressure (ICD-10-PCS; principal; 2023-03-02)
PROC: XW033E5 Introduction of Remdesivir Anti-infective into Peripheral Vein, Percutaneous Approach, New Technology Group 5 (ICD-10-PCS; 2023-03-02)
PROC: 06HY33Z Insertion of Infusion Device into Lower Vein, Percutaneous Approach (ICD-10-PCS; 2023-03-02)
PROC: 5A1955Z Respiratory Ventilation, Greater than 96 Consecutive Hours (ICD-10-PCS; 2023-03-03)
PROC: 0BH17EZ Insertion of Endotracheal Airway into Trachea, Via Natural or Artificial Opening (ICD-10-PCS; 2023-03-03)
PROC: 04HY32Z Insertion of Monitoring Device into Lower Artery, Percutaneous Approach (ICD-10-PCS; 2023-03-03)
PROC: 05HC33Z Insertion of Infusion Device into Left Basilic Vein, Percutaneous Approach (ICD-10-PCS; 2023-03-06)
PROC: 05HA33Z Insertion of Infusion Device into Left Brachial Vein, Percutaneous Approach (ICD-10-PCS; 2023-03-06)
PROC: 0B938ZZ Drainage of Right Main Bronchus, Via Natural or Artificial Opening Endoscopic (ICD-10-PCS; 2023-03-14)
PROC: 0B9J8ZX Drainage of Left Lower Lung Lobe, Via Natural or Artificial Opening Endoscopic, Diagnostic (ICD-10-PCS; 2023-03-14)
DX: A41.9 Sepsis, unspecified organism (principal); U07.1 COVID-19; J12.82 Pneumonia due to coronavirus disease 2019; J96.01 Acute respiratory failure with hypoxia; J69.0 Pneumonitis due to inhalation of food and vomit; J44.1 Chronic obstructive pulmonary disease with (acute) exacerbation; I69.351 Hemiplegia and hemiparesis following cerebral infarction affecting right dominant side; E87.20 Acidosis, unspecified; I24.8 Other forms of acute ischemic heart disease; J44.0 Chronic obstructive pulmonary disease with (acute) lower respiratory infection; J98.11 Atelectasis; R65.20 Severe sepsis without septic shock; E87.6 Hypokalemia; E11.9 Type 2 diabetes mellitus without complications; E78.00 Pure hypercholesterolemia, unspecified; I11.0 Hypertensive heart disease with heart failure; I34.0 Nonrheumatic mitral (valve) insufficiency; G40.909 Epilepsy, unspecified, not intractable, without status epilepticus; I48.0 Paroxysmal atrial fibrillation; I50.9 Heart failure, unspecified; J98.09 Other diseases of bronchus, not elsewhere classified; R13.10 Dysphagia, unspecified; Z79.82 Long term (current) use of aspirin; Z79.899 Other long term (current) drug therapy; Z87.891 Personal history of nicotine dependence
CPT/HCPCS: 36245; 36569; 36600; 71045; 71250; 74230; 76937; 80048; 80053; 80307; 81001; 82805; 82962; 83605; 83690; 83735; 83880; 84100; 84132; 84145; 84443; 84484; 85025; 87015; 87040; 87070; 87081; 87086; 87101; 87186; 87205; 87206; 87220; 87252; 87804; 92507; 92526; 92610; 92611; 93005; 93306; 94002; 94003; 94640; 94644; 94660; 94668; 94669; 94799; 97112; 97163; 97530; 97535; 99291; G0238; G0378; G0480; J0282; J0360; J0456; J0712; J1100; J1644; J1940; J2250; J2405; J2543; J2704; J2765; J3480; J3490; J7030; J7040; J7050; J7060; J7120; Q9967; 36415-L1; 36415-TC; J7613

== ENCOUNTER 2023-04-13 20:31 | Inpatient (IN) | payer MEDICARE, OTHER ==
[~2023-04-13] VITALS: Ht 167.6 cm; Wt 57.4 kg
[~2023-04-13 20:31] MED LIST changes: +ALBU90AE IH; +ASPI-1444 PO; -ASPI81TA39 PO; +ATOR40TA71 PO; +BACL5TAB PO; +BUDE10.22 IH; +ESCI10 PO; +FLUT16H NASAL; -GABA-1181 PO; -LAMO150T6 PO; +LAMO200T10 PO; +LEVE500T20 PO; -NAPR500T6 PO; -PRAV40TA3 PO
[2023-04-13 23:30] LABS: BASOPHILS % (AUTO) 0.4 % (0.0-2.0); EOSINOPHILS % (AUTO) 0.2 % (1.0-6.0); HEMATOCRIT 29.2 % (36-46); HEMOGLOBIN 9.6 g/dL (12.0-16.0); LYMPHOCYTES # (AUTO) 1.2 K/uL (1.0-4.8); LYMPHOCYTES % (AUTO) 4.5 % (22.0-44.0); MEAN CORPUSCULAR HEMOGLOBIN 30.3 pg (26.0-34.0); MEAN CORPUSCULAR HGB CONC 32.9 G/dL (31.0-37.0); MEAN CORPUSCULAR VOLUME 92 fL (80-100); MONOCYTES # (AUTO) 1.3 K/uL (0.1-1.0); NEUTROPHILS # (AUTO) 23.9 K/uL (1.8-7.7); RED BLOOD CELL COUNT(AUTO) 3.17 MIL/uL (4.00-5.20); RED CELL DISTRIBUTION WIDTH 14.3 % (11.5-14.5)
[2023-04-13 23:36] LABS: ANION GAP 4 mmol/L (8-16); CARBON DIOXIDE 36 mmol/L (22-29); CHLORIDE 90 mmol/L (98-107); CREATININE 0.43 mg/dL (0.60-1.30); GLOMERULAR FILTR. RATE CALC > 60 mL/min (>60); GLUCOSE,RANDOM 117 mg/dL (70-110); SODIUM SERUM 130 mmol/L (136-145)
[2023-04-13 23:46] LABS: NEUTROPHILS % (AUTO) 89.9 % (40.0-70.0); PLATELET COUNT (AUTO) 762 K/uL (150-450); POTASSIUM 2.8 mmol/L (3.5-5.1)
[2023-04-14] MEDS ORDERED: POTASSIUM CHLORIDE 20 MEQ ER TABLET PO ONE
[2023-04-14] MEDS ORDERED: LEVOFLOXACIN 500 MG/D5% WATER 100 ML IV ONE
[2023-04-14] MEDS ORDERED: PIPERACILLIN/TAZO 3.375 GM/D5W 50 ML IV ONE
[2023-04-14] MEDS ORDERED: POTASSIUM CHLORIDE 10% 40 MEQ/30 ML LIQUID UDCUP PO ONE (01:45)
[2023-04-14] MEDS ORDERED: ACETAMINOPHEN 325 MG TABLET PO PRN ×2 (07:30)
[2023-04-14] MEDS ORDERED: SODIUM CHLORIDE 0.45% 1,000 ML IV ONE (07:30)
[2023-04-14] MEDS ORDERED: MAGNESIUM HYDROXIDE SUSPENSION 30 ML UDCUP PO PRN (07:30)
[2023-04-14] MEDS ORDERED: POTASSIUM CHL 10 MEQ/WATER 50 ML IV PRN (07:30)
[2023-04-14] MEDS ORDERED: OxyCODONE HCL/ACETAMINOPHEN 5-325 MG TABLET PO PRN (07:30)
[2023-04-14] MEDS ORDERED: ONDANSETRON HCL 4 MG/2 ML VIAL IVP PRN ×2 (07:30)
[2023-04-14] MEDS: DOCUSATE SODIUM 100 MG CAPSULE PO SCH ×2 (08:28→20:50)
[2023-04-14] MEDS: LevETIRAcetam 500 MG TABLET PO SCH ×2 (08:29→20:50)
[2023-04-14] MEDS: ATORVASTATIN CALCIUM 40 MG TABLET PO SCH (08:29)
[2023-04-14] MEDS: HEPARIN SODIUM,PORCINE 5,000 UNITS/ML VIAL SQ SCH ×2 (08:29→16:10)
[2023-04-14] MEDS: PIPERACILLIN/TAZO 3.375 GM/D5W 50 ML IV SCH ×3 (08:30→20:39)
[2023-04-14] MEDS: ASPIRIN 81 MG CHEWABLE TABLET PO SCH (08:41)
[2023-04-14] MEDS: FAMOTIDINE 20 MG TABLET PO SCH (08:42)
[2023-04-14 09:15] LABS: ANION GAP 3 mmol/L (8-16); CALCIUM, TOTAL 9.3 mg/dL (8.8-10.5); CARBON DIOXIDE 37 mmol/L (22-29); CHLORIDE 93 mmol/L (98-107); CREATININE 0.52 mg/dL (0.60-1.30); GLOMERULAR FILTR. RATE CALC > 60 mL/min (>60); GLUCOSE,RANDOM 112 mg/dL (70-110); POTASSIUM 3.8 mmol/L (3.5-5.1); SODIUM SERUM 133 mmol/L (136-145)
[2023-04-14 09:19] LABS: PHOSPHORUS 4.3 mg/dL (2.5-4.9)
[2023-04-14 11:03] LABS: LACTIC ACID 1.3 mmol/L (0.4-2.0)
[2023-04-14] MEDS ORDERED: SODIUM CHLORIDE 0.9% 500 ML IV ONE (20:24)
[2023-04-14 21:07] VITALS: BP 102/60; PULSE 80; RESP 18; TEMP 98
[2023-04-14] MEDS ORDERED: PNEUMOCOCCAL VACCINE POLYVALENT 0.5 ML VIAL [PPSV23] IM. ONE (22:00)
[2023-04-15] MEDS: HEPARIN SODIUM,PORCINE 5,000 UNITS/ML VIAL SQ SCH ×4 (00:02→23:35)
[2023-04-15 00:36] LABS: COVID AG,FIA SOURCE NASAL SWAB
[2023-04-15] MEDS: PIPERACILLIN/TAZO 3.375 GM/D5W 50 ML IV SCH ×4 (01:59→19:55)
[2023-04-15 03:35] VITALS: BP 96/54; PULSE 73; RESP 18; TEMP 98.5
[2023-04-15] MEDS: DOCUSATE SODIUM 100 MG CAPSULE PO SCH ×2 (08:02→20:00)
[2023-04-15] MEDS: FAMOTIDINE 20 MG TABLET PO SCH (08:02)
[2023-04-15] MEDS: LevETIRAcetam 500 MG TABLET PO SCH ×2 (08:02→20:00)
[2023-04-15] MEDS: ATORVASTATIN CALCIUM 40 MG TABLET PO SCH (08:02)
[2023-04-15] MEDS: ASPIRIN 81 MG CHEWABLE TABLET PO SCH (08:02)
[2023-04-15 09:11] LABS: BASOPHILS % (AUTO) 0.8 % (0.0-2.0); EOSINOPHILS % (AUTO) 0.2 % (1.0-6.0); HEMATOCRIT 29.7 % (36-46); LYMPHOCYTES # (AUTO) 0.9 K/uL (1.0-4.8); LYMPHOCYTES % (AUTO) 5.7 % (22.0-44.0); MEAN CORPUSCULAR HEMOGLOBIN 31.2 pg (26.0-34.0); MEAN CORPUSCULAR HGB CONC 33.6 G/dL (31.0-37.0); MEAN CORPUSCULAR VOLUME 93 fL (80-100); MONOCYTES # (AUTO) 0.6 K/uL (0.1-1.0); MONOCYTES % (AUTO) 4.2 % (2.0-9.0); NEUTROPHILS # (AUTO) 13.8 K/uL (1.8-7.7); RED BLOOD CELL COUNT(AUTO) 3.19 MIL/uL (4.00-5.20); RED CELL DISTRIBUTION WIDTH 14.5 % (11.5-14.5)
[2023-04-15 09:17] LABS: NEUTROPHILS % (AUTO) 89.1 % (40.0-70.0)
[2023-04-15 09:18] LABS: PLATELET COUNT (AUTO) 793 K/uL (150-450)
[2023-04-15 20:18] VITALS: BP 120/68; PULSE 84; RESP 18; TEMP 97.8
[2023-04-15] MEDS ORDERED: SODIUM CHLORIDE 0.9% 500 ML IV ONE (23:34)
[2023-04-16] MEDS: PIPERACILLIN/TAZO 3.375 GM/D5W 50 ML IV SCH ×4 (01:17→19:47)
[2023-04-16 04:13] VITALS: BP 102/58; PULSE 76; RESP 18; TEMP 98.4
[2023-04-16] MEDS: HEPARIN SODIUM,PORCINE 5,000 UNITS/ML VIAL SQ SCH ×3 (08:23→23:20)
[2023-04-16] MEDS: ATORVASTATIN CALCIUM 40 MG TABLET PO SCH (08:23)
[2023-04-16] MEDS: DOCUSATE SODIUM 100 MG CAPSULE PO SCH ×2 (08:23→20:08)
[2023-04-16] MEDS: LevETIRAcetam 500 MG TABLET PO SCH ×2 (08:23→20:08)
[2023-04-16] MEDS: ASPIRIN 81 MG CHEWABLE TABLET PO SCH (08:24)
[2023-04-16] MEDS: FAMOTIDINE 20 MG TABLET PO SCH (08:24)
[2023-04-16 09:27] LABS: INR 1.1 (0.9-1.1); PROTHROMBIN TIME 11.1 SEC (9.4-11.6)
[2023-04-16 16:18] VITALS: BP 100/58; PULSE 76; RESP 17; TEMP 98
[2023-04-16 20:16] VITALS: BP 104/59; PULSE 81; RESP 20; TEMP 98.4
[2023-04-17] VITALS (7 sets, daily range): BP systolic 99–110; BP diastolic 55–60; PULSE 70–87; RESP 18–20; TEMP 97.2–98.8; O2SAT 96–99
[2023-04-17] MEDS: PIPERACILLIN/TAZO 3.375 GM/D5W 50 ML IV SCH ×4 (01:07→20:06)
[2023-04-17 06:00] LABS: BASOPHILS % (AUTO) 0.6 % (0.0-2.0); EOSINOPHILS % (AUTO) 0.4 % (1.0-6.0); HEMATOCRIT 29.4 % (36-46); HEMOGLOBIN 9.8 g/dL (12.0-16.0); LYMPHOCYTES # (AUTO) 0.8 K/uL (1.0-4.8); MEAN CORPUSCULAR HEMOGLOBIN 30.7 pg (26.0-34.0); MEAN CORPUSCULAR HGB CONC 33.2 G/dL (31.0-37.0); MEAN CORPUSCULAR VOLUME 93 fL (80-100); MONOCYTES # (AUTO) 1.1 K/uL (0.1-1.0); MONOCYTES % (AUTO) 6.6 % (2.0-9.0); NEUTROPHILS # (AUTO) 14.6 K/uL (1.8-7.7); RED BLOOD CELL COUNT(AUTO) 3.18 MIL/uL (4.00-5.20); RED CELL DISTRIBUTION WIDTH 14.7 % (11.5-14.5)
[2023-04-17 06:10] LABS: ANION GAP 7 mmol/L (8-16); CALCIUM, TOTAL 8.8 mg/dL (8.8-10.5); CARBON DIOXIDE 36 mmol/L (22-29); CHLORIDE 94 mmol/L (98-107); CREATININE 0.43 mg/dL (0.60-1.30); GLOMERULAR FILTR. RATE CALC > 60 mL/min (>60); GLUCOSE,RANDOM 105 mg/dL (70-110); POTASSIUM 3.1 mmol/L (3.5-5.1); SODIUM SERUM 136 mmol/L (136-145)
[2023-04-17 07:01] LABS: NEUTROPHILS % (AUTO) 87.4 % (40.0-70.0); PLATELET COUNT (AUTO) 774 K/uL (150-450)
[2023-04-17] MEDS: POTASSIUM CHLORIDE 20 MEQ ER TABLET PO PRN (07:15)
[2023-04-17] MEDS: ASPIRIN 81 MG CHEWABLE TABLET PO SCH (07:54)
[2023-04-17] MEDS: DOCUSATE SODIUM 100 MG CAPSULE PO SCH ×2 (07:54→20:07)
[2023-04-17] MEDS: HEPARIN SODIUM,PORCINE 5,000 UNITS/ML VIAL SQ SCH ×3 (07:54→23:42)
[2023-04-17] MEDS: FAMOTIDINE 20 MG TABLET PO SCH (07:55)
[2023-04-17] MEDS: ATORVASTATIN CALCIUM 40 MG TABLET PO SCH (07:55)
[2023-04-17] MEDS: LevETIRAcetam 500 MG TABLET PO SCH ×2 (07:55→20:07)
[2023-04-17] MEDS ORDERED: 0.9% SODIUM CHLORIDE 5 ML NEB SOLUTION NEB ONE (13:06)
[2023-04-17] MEDS: ALBUTEROL SULFATE 2.5 MG/0.5 ML NEB SOLUTION NEB PRN (13:16)
[2023-04-17] MEDS: BENZONATATE 100 MG CAPSULE PO PRN (16:05)
[2023-04-17] MEDS ORDERED: SODIUM CHLORIDE 0.9% 1,000 ML IV ONE (21:30)
[2023-04-18] MEDS: PIPERACILLIN/TAZO 3.375 GM/D5W 50 ML IV SCH ×4 (02:24→20:52)
[2023-04-18 04:30] VITALS: BP 102/59; PULSE 80; RESP 18; TEMP 98.4
[2023-04-18] MEDS: LevETIRAcetam 500 MG TABLET PO SCH ×2 (08:47→20:51)
[2023-04-18] MEDS: ASPIRIN 81 MG CHEWABLE TABLET PO SCH (08:47)
[2023-04-18] MEDS: ATORVASTATIN CALCIUM 40 MG TABLET PO SCH (08:47)
[2023-04-18] MEDS: DOCUSATE SODIUM 100 MG CAPSULE PO SCH ×2 (08:47→20:52)
[2023-04-18] MEDS: HEPARIN SODIUM,PORCINE 5,000 UNITS/ML VIAL SQ SCH ×2 (08:47→16:00)
[2023-04-18] MEDS: FAMOTIDINE 20 MG TABLET PO SCH (08:47)
[2023-04-18 09:15] VITALS: BP 92/54; PULSE 73; RESP 19; TEMP 98.3
[2023-04-18] MEDS ORDERED: IOHEXOL 350 MG/ML 100 ML VIAL ONE (11:03)
[2023-04-18] MEDS ORDERED: SODIUM CHLORIDE 0.9% 100 ML ONE (11:04)
[2023-04-18] MEDS ORDERED: 0.9% SODIUM CHLORIDE 5 ML NEB SOLUTION NEB ONE (14:14)
[2023-04-18] MEDS ORDERED: FentaNYL CITRATE PF 100 MCG/2 ML VIAL ONE (14:15)
[2023-04-18] MEDS ORDERED: NALOXONE HCL 0.4 MG/ML VIAL ONE (14:16)
[2023-04-18] MEDS ORDERED: LIDOCAINE/PF 1% 5 ML VIAL ONE (14:16)
[2023-04-18] MEDS ORDERED: FLUMAZENIL 0.1 MG/ML 5 ML VIAL IVP ONE (14:16)
[2023-04-18] MEDS ORDERED: MIDAZOLAM HCL 2 MG/2 ML VIAL ONE (14:16)
[2023-04-18] MEDS: ALBUTEROL SULFATE 2.5 MG/0.5 ML NEB SOLUTION NEB PRN (14:16)
[2023-04-18 14:18] VITALS: PULSE 74; RESP 20; O2SAT 99
[2023-04-18 14:19] VITALS: PULSE 74; RESP 20; O2SAT 99
[2023-04-18 14:30] VITALS: PULSE 72; RESP 20; O2SAT 100
[2023-04-18] MEDS ORDERED: MIDAZOLAM HCL 2 MG/2 ML VIAL IVP ONE (16:30)
[2023-04-18] MEDS ORDERED: FentaNYL CITRATE PF 100 MCG/2 ML VIAL IVP ONE ×2 (16:30)
[2023-04-18 20:22] VITALS: BP 109/59; PULSE 92; RESP 18; TEMP 97.6
[2023-04-18] MEDS: BENZONATATE 100 MG CAPSULE PO PRN (21:20)
[2023-04-19] MEDS: HEPARIN SODIUM,PORCINE 5,000 UNITS/ML VIAL SQ SCH ×4 (00:17→23:43)
[2023-04-19] MEDS: PIPERACILLIN/TAZO 3.375 GM/D5W 50 ML IV SCH ×4 (02:01→20:55)
[2023-04-19 04:30] VITALS: BP 101/61; PULSE 79; RESP 18; TEMP 99.3
[2023-04-19 07:48] VITALS: BP 107/61; PULSE 77; RESP 22; TEMP 97.8
[2023-04-19] MEDS: ATORVASTATIN CALCIUM 40 MG TABLET PO SCH (07:59)
[2023-04-19] MEDS: FAMOTIDINE 20 MG TABLET PO SCH (07:59)
[2023-04-19] MEDS: LevETIRAcetam 500 MG TABLET PO SCH ×2 (08:00→20:54)
[2023-04-19] MEDS: ASPIRIN 81 MG CHEWABLE TABLET PO SCH (08:00)
[2023-04-19] MEDS: DOCUSATE SODIUM 100 MG CAPSULE PO SCH ×2 (08:01→20:54)
[2023-04-19 15:29] VITALS: BP 93/55; PULSE 75; RESP 22; TEMP 98.3
[2023-04-19 19:00] VITALS: PULSE 70; RESP 20; O2SAT 96
[2023-04-19] MEDS: ALBUTEROL SULFATE 2.5 MG/0.5 ML NEB SOLUTION NEB PRN (19:00)
[2023-04-19 19:15] VITALS: PULSE 71; RESP 20; O2SAT 100
[2023-04-19 19:36] VITALS: BP 106/63; PULSE 87; RESP 18; TEMP 97.6
[2023-04-19] MEDS ORDERED: SODIUM CHLORIDE 0.9% 500 ML IV ONE (20:52)
[2023-04-19] MEDS: BENZONATATE 100 MG CAPSULE PO PRN (21:06)
[2023-04-20] VITALS (9 sets, daily range): BP systolic 100–113; BP diastolic 56–67; PULSE 75–87; RESP 16–20; TEMP 98–99.1; O2SAT 98
[2023-04-20] MEDS: PIPERACILLIN/TAZO 3.375 GM/D5W 50 ML IV SCH ×4 (02:01→19:58)
[2023-04-20] MEDS: ASPIRIN 81 MG CHEWABLE TABLET PO SCH (08:51)
[2023-04-20] MEDS: LevETIRAcetam 500 MG TABLET PO SCH ×2 (08:51→19:59)
[2023-04-20] MEDS: HEPARIN SODIUM,PORCINE 5,000 UNITS/ML VIAL SQ SCH ×2 (08:51→16:30)
[2023-04-20] MEDS: FAMOTIDINE 20 MG TABLET PO SCH (08:51)
[2023-04-20] MEDS: ATORVASTATIN CALCIUM 40 MG TABLET PO SCH (08:51)
[2023-04-20] MEDS: DOCUSATE SODIUM 100 MG CAPSULE PO SCH ×2 (08:59→19:58)
[2023-04-20] MEDS: ALBUTEROL SULFATE 2.5 MG/0.5 ML NEB SOLUTION NEB PRN ×2 (09:28→20:18)
[2023-04-20] MEDS: BENZONATATE 100 MG CAPSULE PO PRN (19:58)
[2023-04-20] MEDS ORDERED: 0.9% SODIUM CHLORIDE 5 ML NEB SOLUTION NEB ONE (20:17)
[2023-04-21] MEDS: HEPARIN SODIUM,PORCINE 5,000 UNITS/ML VIAL SQ SCH ×4 (00:08→23:44)
[2023-04-21] MEDS: PIPERACILLIN/TAZO 3.375 GM/D5W 50 ML IV SCH ×4 (01:44→20:30)
[2023-04-21 04:20] VITALS: BP 117/57; PULSE 78; RESP 16; TEMP 98
[2023-04-21 07:56] VITALS: BP 125/63; PULSE 75; RESP 18; TEMP 98.2
[2023-04-21] MEDS: ASPIRIN 81 MG CHEWABLE TABLET PO SCH (08:13)
[2023-04-21] MEDS: FAMOTIDINE 20 MG TABLET PO SCH (08:13)
[2023-04-21] MEDS: DOCUSATE SODIUM 100 MG CAPSULE PO SCH ×2 (08:13→20:30)
[2023-04-21] MEDS: LevETIRAcetam 500 MG TABLET PO SCH ×2 (08:13→20:30)
[2023-04-21] MEDS: ATORVASTATIN CALCIUM 40 MG TABLET PO SCH (08:13)
[2023-04-21 15:34] VITALS: BP 124/68; PULSE 78; RESP 18; TEMP 98.1
[2023-04-21 20:07] VITALS: BP 108/61; PULSE 82; RESP 18; TEMP 98.4
[2023-04-21] MEDS: BENZONATATE 100 MG CAPSULE PO PRN (20:31)
[2023-04-21 20:46] VITALS: BP 108/61; PULSE 82; RESP 18; TEMP 98.4
[2023-04-22] MEDS: PIPERACILLIN/TAZO 3.375 GM/D5W 50 ML IV SCH ×3 (02:08→13:00)
[2023-04-22 04:22] VITALS: BP 126/63; PULSE 75; RESP 18; TEMP 98.3
[2023-04-22 06:53] LABS: BASOPHILS % (AUTO) 0.7 % (0.0-2.0); EOSINOPHILS % (AUTO) 0.3 % (1.0-6.0); HEMATOCRIT 26.8 % (36-46); LYMPHOCYTES # (AUTO) 1.1 K/uL (1.0-4.8); LYMPHOCYTES % (AUTO) 8.3 % (22.0-44.0); MEAN CORPUSCULAR HGB CONC 33.6 G/dL (31.0-37.0); MEAN CORPUSCULAR VOLUME 92 fL (80-100); MONOCYTES % (AUTO) 7.5 % (2.0-9.0); NEUTROPHILS # (AUTO) 10.8 K/uL (1.8-7.7); NEUTROPHILS % (AUTO) 83.2 % (40.0-70.0); PLATELET COUNT (AUTO) 682 K/uL (150-450); RED BLOOD CELL COUNT(AUTO) 2.91 MIL/uL (4.00-5.20); RED CELL DISTRIBUTION WIDTH 14.7 % (11.5-14.5)
[2023-04-22 07:20] LABS: ALKALINE PHOSPHATASE 104 U/L (46-116); ANION GAP 6 mmol/L (8-16); ASPARTATE AMINOTRANSFERASE 19 U/L (15-37); BILIRUBIN,TOTAL 0.3 mg/dL (0.1-1.0); CALCIUM, TOTAL 8.5 mg/dL (8.8-10.5); CARBON DIOXIDE 32 mmol/L (22-29); CHLORIDE 99 mmol/L (98-107); CREATININE 0.28 mg/dL (0.60-1.30); GLOMERULAR FILTR. RATE CALC > 60 mL/min (>60); GLUCOSE,RANDOM 91 mg/dL (70-110); SODIUM SERUM 137 mmol/L (136-145); TOTAL PROTEIN, SERUM 6.2 g/dL (6.4-8.2)
[2023-04-22 07:40] LABS: ALANINE AMINOTRANSFERASE 6 U/L (12-78)
[2023-04-22 08:19] VITALS: BP 115/68; PULSE 73; RESP 20; TEMP 97.5
[2023-04-22] MEDS: LevETIRAcetam 500 MG TABLET PO SCH (08:20)
[2023-04-22] MEDS: ASPIRIN 81 MG CHEWABLE TABLET PO SCH (08:20)
[2023-04-22] MEDS: DOCUSATE SODIUM 100 MG CAPSULE PO SCH (08:20)
[2023-04-22] MEDS: FAMOTIDINE 20 MG TABLET PO SCH (08:20)
[2023-04-22] MEDS: ATORVASTATIN CALCIUM 40 MG TABLET PO SCH (08:20)
[2023-04-22] MEDS: HEPARIN SODIUM,PORCINE 5,000 UNITS/ML VIAL SQ SCH ×2 (08:20→15:43)
[2023-04-22] MEDS: BENZONATATE 100 MG CAPSULE PO PRN ×2 (08:23→15:43)
[2023-04-22] MEDS: POTASSIUM CHLORIDE 20 MEQ ER TABLET PO PRN (11:59)
[2023-04-22] MEDS ORDERED: MAGN-169 PO (14:00)
[2023-04-22] MEDS ORDERED: BENZ-227 PO (14:00)
[2023-04-22] MEDS ORDERED: PERCT PO (14:01)
[2023-04-22] MEDS ORDERED: CEFT1VIA65 IV (14:02)
[2023-04-22 16:20] VITALS: BP 119/49; PULSE 84
== END 2023-04-22 16:30 | DRG 193 ==
LOC: EMS 22:08 → AHU 04-14 07:48 → 6S 04-14 19:44
PROVIDERS: ADMIT Internal Medicine; ATTEND Internal Medicine
PROC: 3E0234Z Introduction of Serum, Toxoid and Vaccine into Muscle, Percutaneous Approach (ICD-10-PCS; 2023-04-14)
PROC: 0B9L3ZX Drainage of Left Lung, Percutaneous Approach, Diagnostic (ICD-10-PCS; principal; 2023-04-18)
DX: J18.8 Other pneumonia, unspecified organism (principal); E43 Unspecified severe protein-calorie malnutrition; J96.00 Acute respiratory failure, unspecified whether with hypoxia or hypercapnia; R64 Cachexia; I69.351 Hemiplegia and hemiparesis following cerebral infarction affecting right dominant side; J44.0 Chronic obstructive pulmonary disease with (acute) lower respiratory infection; C34.02 Malignant neoplasm of left main bronchus; Z20.822 Contact with and (suspected) exposure to COVID-19; R91.8 Other nonspecific abnormal finding of lung field; I69.320 Aphasia following cerebral infarction; G40.909 Epilepsy, unspecified, not intractable, without status epilepticus; I34.0 Nonrheumatic mitral (valve) insufficiency; D75.839 Thrombocytosis, unspecified; E87.6 Hypokalemia; D75.838 Other thrombocytosis; J38.01 Paralysis of vocal cords and larynx, unilateral; K76.0 Fatty (change of) liver, not elsewhere classified; Z79.82 Long term (current) use of aspirin; Z68.20 Body mass index [BMI] 20.0-20.9, adult; Z79.899 Other long term (current) drug therapy; Z87.891 Personal history of nicotine dependence
CPT/HCPCS: 32408; 71045; 71260; 80048; 80053; 83605; 83735; 84100; 84132; 85025; 85610; 87040; 87081; 87481; 92523; 92610; 94640; 97110; 97112; 97163; 97166; 97530; 97535; 99285; J1644; J1956; J2001; J2250; J2310; J2543; J3010; J3480; J3490; J7030; J7040; J7050; Q9967; 36415-L1; 36415-TC; J7613